=== PATIENT | male | born 1960 | race Caucasian/White ===

== ENCOUNTER 2016-11-12 08:00 | Inpatient (IN) ==
--- NOTE | 2016-11-09 22:46 | Discharge Summary ---
<Tj Pacheco Stephen - Last Filed: 11/12/16 10:00> Date of Encounter: 11/12/16 - Discharge Diagnosis (1) Obesity (BMI 35.0-39.9 without comorbidity) Priority: Secondary Status: Chronic (2) Arthritis of left hip Priority: Primary Status: Chronic (3) Status post total hip replacement, left Priority: Primary Status: Acute (4) Asthma Priority: Secondary Status: Chronic Qualifiers: Asthma severity: unspecified severity Asthma complication type: uncomplicated Qualified Code(s): J45.909 - Unspecified asthma, uncomplicated (5) HTN (hypertension) Priority: Secondary Status: Chronic Qualifiers: Hypertension type: essential hypertension Qualified Code(s): I10 - Essential (primary) hypertension - Discharge Medications Home Medications: Aspirin Enteric Coated [Aspirin EC] 325 mg PO DAILY #21 tablet.dr 11/09/16 [Rx] OxyCODONE Immed Rel [Roxicodone 5 MG] 5 - 10 mg PO Q6HR PRN #40 tablet 11/09/16 [Rx] Albuterol Sulfate [Albuterol Inhaler] 2 puff IH Q4HR PRN 11/12/16 [History] Cholecalciferol (Vitamin D3) [Vitamin D3] 1,000 unit PO DAILY 11/12/16 [History] Cyclobenzaprine HCl 10 mg PO TID 11/12/16 [History] FLUoxetine HCl [Prozac] 40 mg PO DAILY 11/12/16 [History] Lisinopril/Hydrochlorothiazide [Zestoretic 10-12.5 mg Tablet] 1 each PO DAILY [History] Meloxicam [Mobic] 15 mg PO DAILY 11/12/16 [History] Omeprazole [PriLOSEC] 40 mg PO DAILY 11/12/16 [History] Allergies/Adverse Reactions: Allergies No Known Allergies Allergy (Verified 11/12/16 09:06) Primary care physician: Turner Palacios - Patient Status Disposition: Transfer SNF Condition: Good - Discharge Instructions Follow Up With: Turner Palacios MD [Primary Care Provider] - Additional Instructions: POD#2 Left THR - Patient doing well, A&O in bed. Pain controlled. Vitals stable. Patient had fever last night 101 - Treated with Ofirmev 1000mg, then followed with Tylenol PO q hours. Given 500mL NS Bolus. Fever has now subsided and he has remained afebrile. Pulse ox 93% on room air. He does have a history of asthma H/H - 12.38 - asymptomatic Plan: LLE: WBAT, in hip ABD pillow at night x 6 weeks, hip precautions x 6 weeks Encouraging IS. Continuous pulse OX. Will get CXR if fever returns. Opsite dressing, leave intact until first post-operative visit. If dressing becomes >50% saturated, contact office, remove dressing and place appropriate dressing in its place. Do not allow for dressing to get wet. Lita in place, plan to remove at post-operative day #14-16. Total Hip - Joint Precautions x 6 weeks Apply cold therapy wrap 3-6x/day for 20 minutes at a time. Encourage ambulation throughout the day Use Incentive spirometer 10x/hour. Elevate affected extremity above heart as tolerated. Brace: Wear hip abduction brace x 6 weeks D/C to ECF Thursday - Signature* - Hospital Course Hospital course: Mr. Dewey is a 56 year old male - Time Spent with Patient Total time spent providing and/or coordinating discharge services: <Taylor Haque - Last Filed: 11/14/16 10:48> Date of Encounter: 11/15/16 Time of Encounter: 10:38 - Discharge Diagnosis (1) Arthritis of left hip Priority: Primary Status: Chronic (2) Status post total hip replacement, left Priority: Primary Status: Acute (3) Asthma Priority: Secondary Status: Chronic Qualifiers: Asthma severity: unspecified severity Asthma complication type: uncomplicated Qualified Code(s): J45.909 - Unspecified asthma, uncomplicated (4) HTN (hypertension) Priority: Secondary Status: Chronic Qualifiers: Hypertension type: essential hypertension Qualified Code(s): I10 - Essential (primary) hypertension Date of admission: 11/12/16 Discharging clinician: Tj Pacheco Anticipated date of discharge: 11/15/16 - Patient Status Functional capacity at discharge: uses cane/walker Overall status at discharge: patient is back to baseline - Diet and Activity Activity: as per physical therapy Diet: advance to your usual diet - Hospital Course Hospital course: Mr. Dewey is a 56 year old male, status post a Left Total Hip Replacement. He had an uneventful post-operative recovery course. He received antibiotics and physical therapy and were discharged in stable condition. There will follow-up in the office in 2 weeks. - Time Spent with Patient Total time spent providing and/or coordinating discharge services: Less than 30 minutes
[2016-11-12] MEDS ORDERED: Lidocaine -MPF 1% 2 ML VIAL ID ONE (08:17)
[2016-11-12] MEDS ORDERED: CeFAZolin Pre 2,000 MG/100 ML 2,000 MG/100 ML BAG IVPB ONE ×2 (08:17→15:30)
[2016-11-12] MEDS ORDERED: Albuterol 2.5 MG/3 ML NEBULIZER IH ONE ×2 (08:25→11:00)
[2016-11-12] MEDS ORDERED: Albuterol 2.5 MG/3 ML NEBULIZER ONE (08:27)
[2016-11-12] MEDS ORDERED: Ringers Solution, Lactated 1,000 ML IVC SCH ×3 (08:30→15:30)
--- NOTE | 2016-11-12 08:42 | Anesthesia Evaluation PreOp ---
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 11/09/16 [Rx] OxyCODONE Immed Rel [Roxicodone 5 MG] 5 - 10 mg PO Q6HR PRN #40 tablet 11/09/16 [Rx] Allergies No Known Allergies Allergy (Unverified 11/07/16 16:07) - Meds/Allergy Pre-op Review Medications Reviewed: Yes Allergies Reviewed: Yes Beta Blockers on Current Med List: No Anesthesia Results - Labs Laboratory Tests 11/07/16 11/07/16 11/07/16 16:34 16:34 16:34 Hgb 16.1 Hct 49.6 Plt Count 300 PT 10.8 INR 1.0 APTT 26.9 Sodium 137 Potassium 4.3 Creatinine 1.02 - Imaging EKG: report reviewed (nsr) Anesthesia Exam O2 Sat Height 1.68 m Height 1.68 m Weight 105.687 kg Weight 105.687 kg O2 Sat by Pulse Oximetry 94 Vital Signs Temp Pulse Resp BP Pulse Ox 98.9 F 93 18 128/90 94 11/12/16 08:21 11/12/16 08:21 11/12/16 08:21 11/12/16 08:21 11/12/16 08:21 Height: 1.8 Weight: 106 NPO (# of Hours): >8 - HEENT Pupil (Motor): Pupils equal, EOMI Mallampati: II Teeth: Edentulous Oral Opening: Greater than 3 - 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
[2016-11-12] MEDS ORDERED: CloNIDine Patch 0.1 MG PATCH (WEEKLY) TD ONE (08:45)
[2016-11-12] MEDS ORDERED: *HR* Midazolam HCl 2 MG/2 ML VIAL ONE (09:09)
[2016-11-12] MEDS ORDERED: *HR* Propofol 200 MG/20 ML VIAL IVP ONE (09:09)
[2016-11-12] MEDS ORDERED: *HR* Succinylcholine 200 MG/10 ML VIAL IVP ONE (09:09)
[2016-11-12] MEDS ORDERED: Lidocaine -MPF 2% 2 ML VIAL ONE (09:09)
[2016-11-12] MEDS ORDERED: *HR* FentaNYL (PF) 100 MCG/2 ML VIAL ONE ×2 (09:09→11:32)
[2016-11-12] MEDS ORDERED: Lidocaine -MPF 4% 5 ML AMPUL ONE (09:10)
--- NOTE | 2016-11-12 09:48 | History & Physical Report ---
Date of Encounter: 11/12/16 Time of Encounter: 09:47 24 Hour HP Update - Instructions Instructions: If the History and Physical is less than 30 days old and was completed prior to A.M. admission and or procedure and has NOT been updated on calendar day of procedure please complete this update prior to performing procedure. - Update Patient reports changes in Medical Condition: No Changes in examination, assessment, or condition: No Changes in Medication: No Preop tests/diagnostics Reviewed: Yes Surgery Remains Indicated: Yes Consent for Planned Operative Procedure(s) Verified: Yes - Pre-Operative Checklist Preoperative Checklist Indicated: No Prophylactic Antibiotic Ordered: Yes Is VTE Prophylaxis Indicated?: Yes
--- NOTE | 2016-11-12 10:34 | Orthopedic Operative Note ---
Date of procedure: 11/12/16 Pre-op diagnosis: Left knee arthritis Post-op diagnosis: same Procedure: Procedure: Left Total knee replacement Estimated blood loss: 200 cc Hardware: Metal and polyethylene replacement. Arthrex Femur:8 Tibia:7 PS insert:10 Patella:40 Exam Under anesthesia: Full motion no instability Procedural Notes: Grade 4 arthritic changes all 3 compartments Operative procedure: The patient was brought to the operating room and placed on the operating room table. After general anesthesia was administered the operative knee was examined. Findings were noted in the exam under anesthesia. The operative extremity was prepped and draped in sterile surgical fashion. The patient received IV antibiotics prior to skin incision. A standard midline incision was made centered over the patella. The incision was made through the skin and subcutaneous tissue. A medial parapatellar tendon approach was performed. Care was taken to preserve tissue along the medial aspect of the patella. And to protect the patella tendon. The deep MCL was released off the medial tibia. The infra patella fat pad was excised. Knee was brought into flexion. Patient noted to have grade 4 arthritic changes all 3 compartments. The entry hole was made for the intramedullary femoral guide. The guide was seated in 6 degrees of valgus. Anterior cut was made followed by the distal cut. The ACL the PCL the medial and the lateral menisci were excised. The tibia was subluxed forward. The entry hole was made for the intramedullary tibial guide. Guide was seated to resect 2 mm off the more abnormal side. The knee was brought into flexion the distal femur was sized to an 8. The femoral guide was seated, the anterior cut was made followed by the posterior condylar cut, followed by the chamfer cuts. The finishing guide was seated the box cut was made and the lug holes were drilled. The tibia was sized to a 7, the tibial tray was seated and prepared with the large drill followed by the fin cutter. Trial reduction revealed full extension no varus valgus instability with the appropriate 10 PS Sona. The patella was everted and cut was made at the level of the insertion of the quadriceps and patella tendon. The patella was sized to a 40 the guide was seated and the lug holes are drilled. Trial reduction revealed excellent patella tracking. All trial components were removed all bony surfaces were irrigated. The tibia was cemented first followed by the femur. The 10 PS Sona was seated and the knee was brought into full extension. The patella was cemented and held in place with the patellar holding clamp. After the cement had hardened, the knee sat for 2 minutes with a Betadine saline solution. The knee was then irrigated out with 2 L of pulse irrigation. The knee was closed by the PA. The extensor mechanism was closed with #2 FiberWire suture and #2 PDS suture. The subcutaneous tissue was then irrigated and closed deep with #1 PDS suture superficially with 0 PDS suture and skin was closed with skin sabrina. The patient was then placed in a sterile dressing and a postoperative brace extubated and transferred to recovery room in stable condition. Anesthesia: SY Surgeon: Tj Pacheco Condition: stable Disposition: PACU
[2016-11-12] MEDS ORDERED: Ketamine *HR* 500 MG/10 ML MDV ONE (10:55)
[2016-11-12] MEDS ORDERED: Ondansetron 4 MG/2 ML VIAL ONE (10:59)
[2016-11-12] MEDS ORDERED: Dexamethasone 4 MG/ML VIAL ONE (10:59)
[2016-11-12] MEDS ORDERED: *HR* HYDROmorphone (PF) 1 MG/ML SYRINGE IVP PRN ×2 (11:00→15:30)
[2016-11-12] MEDS ORDERED: *HR* Meperidine 25 MG/ML SYRINGE IVP PRN (11:00)
[2016-11-12] MEDS ORDERED: Ondansetron 4 MG/2 ML VIAL IVP ONE (11:00)
[2016-11-12] MEDS ORDERED: *HR* Labetalol 20 MG/4 ML SYRINGE IVP PRN (11:00)
[2016-11-12] MEDS ORDERED: Naloxone 0.4 MG/ML INJ IVP PRN ×2 (11:00→15:30)
[2016-11-12] MEDS ORDERED: EPHEDrine 50 MG/ML VIAL ONE (11:12)
--- NOTE | 2016-11-12 11:53 | Orthopedic Operative Note ---
Date of procedure: 11/12/16 Pre-op diagnosis: Left hip arthritis Post-op diagnosis: same Procedure: Procedure: Left Total Hip Replacment Estimated blood loss: 200 cc Hardware: Metal and polyethylene replacement. Biomet DM Cup: 60 G7 fin cup Femoral size 10 echo full profile lateralized stem Head: +6 head with Sona Procedural Notes: Grade 4 arthritic changes femoral head acetabular socket. Operative procedure: The patient was brought to the operating room and placed on the operating room table. After general anesthesia was administered the patient was placed in the lateral decubitus position with the operative leg up. All pressure points were padded appropriately and the head was stabilized in the neutral position. The operative extremity was prepped and draped in the sterile surgical fashion patient received IV antibiotic prior to skin incision. A standard posterior approach is made to the operative hip, the incision was made through the skin and subcutaneous tissue hemostasis was obtained with Bovie cautery. Using careful sharp dissection the fascia was identified and incised exposing the external rotators. The external rotators were released off the greater trochanter and tagged with #2 FiberWire suture. The capsule was T'd open and the hip was brought into internal rotation. Patient noted to have grade 4 arthritic changes femoral head. The femoral neck cut was made at the appropriate level. An anterior capsulotomy was performed for the anterior retractor. Soft tissues removed from the acetabulum. Patient noted to have grade 4 arthritic changes acetabulum. Acetabulum was first reamed medially, and then reamed in 15 degrees of anteversion and 45 degrees off the horizontal. It was reamed up to the appropriate size 60 The appropriate-sized 60 acetabular cup was impacted in place in 15 degrees of anteversion and 45 degrees off the horizontal. This had good fit and fixation. The hip was brought back in to internal rotation and prepared with the dry box tender followed by the canal finder followed by broaching process in 20 degrees anteversion. It was broached up to the appropriate size 10 The femoral implant was impacted in place in 20 degrees of anteversion. Trial reduction found the hip to be stable with a 6 head and Sona. The trials were removed and the real implants were impacted in place. The hip was reduced, patient had apparent equal leg lengths. The hip had excellent stability with forward flexion to 90 degrees adduction of 30 degrees and internal rotation of 60 degrees. The hip had no shuck. The hips after 2 minutes with a Betadine saline solution. It was irrigated out with 2 L of pulse irrigation. The hip was closed by the PA. Fascia was closed with a running #2 PDS suture. The deep tissue was irrigated and closed deep with #1 PDS suture superficially with 0 PDS suture and skin was closed with Dermabond and skin sabrina. The patient was placed in a sterile dressing and abduction pillow. The patient was extubated and transferred to the recovery room in stable condition. Anesthesia: GETA Surgeon: Tj Pacheco Condition: stable Disposition: PACU
[2016-11-12] MEDS: *HR* HYDROmorphone (PF) 1 MG/ML SYRINGE IVP PRN ×6 (12:45→13:39)
[2016-11-12 13:12] LABS: Hematocrit 44.3 % (37.5-50.1); Hemoglobin 14.1 g/dL (12.9-16.9)
[2016-11-12] MEDS ORDERED: Gabapentin 300 MG CAPSULE PO STA (13:17)
[2016-11-12] MEDS ORDERED: Ketorolac 30 MG/ML VIAL IVP ONE (13:17)
[2016-11-12] MEDS ORDERED: *HR* HYDROmorphone 2 MG/ML SYRINGE ONE (13:20)
[2016-11-12] MEDS ORDERED: *HR* Morphine 10 MG/ML VIAL ONE (13:58)
[2016-11-12] MEDS ORDERED: *HR* Morphine 2 MG/ML SYRINGE IVP PRN (14:01)
--- NOTE | 2016-11-12 14:50 | Anesthesia Evaluation Post Op ---
Date of Encounter: 11/12/16 Time of Encounter: 14:49 - Vital Signs Vital Signs: Vital Signs/O2 Sat/Glucose, Most Current Temp Pulse Resp BP Pulse Ox 11/12/16 14:34 99 16 109/84 97 11/12/16 14:24 102 16 86/63 96 11/12/16 14:14 97.9 F 101 14 96/66 96 11/12/16 14:03 103 18 96/73 98 11/12/16 13:54 101 18 105/85 97 11/12/16 13:44 97.9 F 105 17 109/75 96 11/12/16 13:34 102 21 122/77 96 11/12/16 13:24 105 18 118/77 99 11/12/16 13:13 97.9 F 101 18 109/79 100 11/12/16 13:04 101 20 109/67 99 11/12/16 12:54 100 20 104/67 99 11/12/16 12:44 97.7 F 94 18 101/69 98 11/12/16 12:34 86 18 82/54 99 11/12/16 12:24 85 20 102/72 99 11/12/16 12:14 97.7 F 105 14 110/76 98 - Lungs Lungs: Clear Ascult./Percussion - Airway Airway: Non-obstructed - Cardiovascular Regular Rate - Mental Status Mental Status: Alert & Oriented, Answers Appropriately - Pain Pain Scale: 2 - Nausea Vomiting Nausea Vomiting: Not Present - Hydration Hydration: Tolerates oral liquids - Discharge PostOp Status: Transfer Patient to floor
[2016-11-12] MEDS ORDERED: Ondansetron 4 MG/2 ML VIAL IVP PRN (15:30)
[2016-11-12] MEDS ORDERED: *HR* OxyCODONE Immed Rel 5 MG TABLET PO PRN (15:30)
[2016-11-12] MEDS: Ascorbic Acid 500 MG TABLET PO SCH (16:20)
[2016-11-12] MEDS: *HR* Enoxaparin 30 MG/0.3 ML SYRINGE SQ SCH (16:20)
[2016-11-12] MEDS: ceFAZolin 2,000 MG in D5% in Water 100 ML IVPB SCH ×2 (17:55→22:49)
[2016-11-12] MEDS ORDERED: *HR* Enoxaparin 30 MG/0.3 ML SYRINGE SQ SCH (18:00)
[2016-11-12] MEDS: *HR* OxyCODONE Immed Rel 5 MG TABLET PO PRN (19:29)
[2016-11-12] MEDS ORDERED: MOM Conc 10 ML UD.LIQ PO PRN (21:00)
[2016-11-12] MEDS ORDERED: Sennosides 8.6 MG TABLET PO PRN (21:00)
[2016-11-12] MEDS ORDERED: Temazepam 15 MG CAPSULE PO PRN (21:00)
[2016-11-13] MEDS: *HR* OxyCODONE Immed Rel 5 MG TABLET PO PRN ×5 (03:46→20:51)
[2016-11-13] MEDS: *HR* Enoxaparin 30 MG/0.3 ML SYRINGE SQ SCH ×2 (04:25→16:28)
[2016-11-13 07:05] LABS: Hematocrit 38.9 % (37.5-50.1)
[2016-11-13 07:15] LABS: BUN/Creatinine Ratio 15 (6-26); Blood Urea Nitrogen 15 mg/dL (8-26); Calcium 8.9 mg/dL (8.6-10.8); Carbon Dioxide 23 mEq/L (19-29); Chloride 101 mEq/L (98-109); Glucose 109 mg/dL (70-99); Osmolality,Calculated 279 (280-300); Potassium 4.5 mEq/L (3.5-4.5); Sodium 134 mEq/L (136-145); eGFR For African Americans > 60 (> 60); eGFR For Non-African Americans > 60 (> 60)
[2016-11-13 07:21] LABS: Hemoglobin 12.5 g/dL (12.9-16.9)
[2016-11-13] MEDS: Cholecalciferol (D-3) 1,000 UNIT TABLET PO SCH (07:59)
[2016-11-13] MEDS: Ascorbic Acid 500 MG TABLET PO SCH ×2 (07:59→16:27)
[2016-11-13] MEDS: FLUoxetine 20 MG CAPSULE PO SCH (08:00)
[2016-11-13] MEDS: Multivit/Ca/Min/Fe/FA 1 TAB TABLET PO SCH (08:00)
--- NOTE | 2016-11-13 12:38 | Orthopedics Progress Note ---
Date of Encounter: 11/13/16 Time of Encounter: 08:00 - Assessment and Plan (1) Arthritis of left hip Current Visit: Yes Status: Chronic POD#1 Left THR - Patient doing well, A&O in bed. Pain controlled. Vitals stable. Afebrile. H/H - 12.5/38.9- asymptomatic Plan: LLE: WBAT, in hip ABD pillow at night x 6 weeks, hip precautions x 6 weeks D/C to ECF likely tomorrow - Signature* (2) Status post total hip replacement, left Current Visit: Yes Status: Acute (3) Asthma Current Visit: Yes Status: Chronic Qualifiers: Asthma severity: unspecified severity Asthma complication type: uncomplicated Qualified Code(s): J45.909 - Unspecified asthma, uncomplicated (4) HTN (hypertension) Current Visit: Yes Status: Chronic Qualifiers: Hypertension type: essential hypertension Qualified Code(s): I10 - Essential (primary) hypertension Subjective Principal diagnosis: Left Hip Interval history: POD#1 Left THR - Patient doing well, A&O in bed. Pain controlled. Vitals stable. Afebrile. H/H - 12.5/38.9- asymptomatic LLE: Minimal swelling, no erythema or ecchymosis noted. No calf tenderness or warmth noted. ROM limited. NV intact distally. Plan: LLE: WBAT, in hip ABD pillow at night x 6 weeks, hip precautions x 6 weeks D/C to ECF likely tomorrow - Signature* Objective Vital signs: Vital Signs Temp Pulse Resp BP Pulse Ox 11/13/16 12:05 105 93 11/13/16 10:40 98.8 F 100 18 110/64 95 11/13/16 06:47 99.1 F 105 18 99/65 96 11/13/16 04:57 98.2 F 100 18 105/69 94 11/13/16 01:00 98.8 F 103 17 119/74 96 11/12/16 21:57 98.4 F 96 17 101/64 96 11/12/16 17:30 98.3 F 103 14 118/78 95 11/12/16 16:23 97.4 F L 102 5 108/76 93 11/12/16 15:53 98.6 F 104 16 118/77 94 11/12/16 15:08 98.7 F 107 14 93/57 94 11/12/16 14:52 102 16 95/64 98 11/12/16 14:44 98.9 F 105 16 93/65 97 11/12/16 14:34 99 16 109/84 97 11/12/16 14:24 102 16 86/63 96 11/12/16 14:14 97.9 F 101 14 96/66 96 11/12/16 14:03 103 18 96/73 98 11/12/16 13:54 101 18 105/85 97 11/12/16 13:44 97.9 F 105 17 109/75 96 11/12/16 13:34 102 21 122/77 96 11/12/16 13:24 105 18 118/77 99 11/12/16 13:13 97.9 F 101 18 109/79 100 11/12/16 13:04 101 20 109/67 99 11/12/16 12:54 100 20 104/67 99 11/12/16 12:44 97.7 F 94 18 101/69 98 Intake and Output 11/12/16 11/13/16 11/13/16 23:59 07:59 15:59 Intake Total 740 / 740 1200 / 1200 240 / 240 Output Total 550 / 550 Balance 190 / 190 1200 / 1200 240 / 240 Intake: IV Fluids 100 / 100 Ancef 2,000 MG In 100 / 100 Dextrose 5% 100 ML @ 200 mls/hr IVPB Q8HR [facility] Rx#: [id number] Oral 640 / 640 1200 / 1200 240 / 240 Output: Urine 550 / 550 Other: Meal Dinner Breakfast Percent of Meal Consumed 75% 95% # Voids 2 Incision: clean and dry - Labs CBC & BMP: 11/13/16 06:25 11/13/16 06:25 Labs: Abnormal lab results Hgb 12.5 g/dL (12.9-16.9) L D 11/13/16 06:25 Sodium 134 mEq/L (136-145) L 11/13/16 06:25 Glucose 109 mg/dL (70-99) H 11/13/16 06:25 Calculated Osmolality 279 (280-300) L 11/13/16 06:25 - VTE Documentation of Mechanical Device: Venous foot pump, device Consult Discharge Plan - Plan Referrals: Turner Palacios MD [Primary Care Provider] -
[2016-11-14] MEDS ORDERED: Acetaminophen IV 1,000 MG/100 ML INFUS..BTL IVPB ONE (01:18)
[2016-11-14] MEDS ORDERED: 0.9 % Sodium Chloride 500 ML IVC ONE (01:25)
[2016-11-14 06:37] LABS: Hematocrit 38.3 % (37.5-50.1); Hemoglobin 12.7 g/dL (12.9-16.9)
[2016-11-14 06:52] LABS: BUN/Creatinine Ratio 16 (6-26); Blood Urea Nitrogen 15 mg/dL (8-26); Calcium 8.8 mg/dL (8.6-10.8); Carbon Dioxide 26 mEq/L (19-29); Chloride 105 mEq/L (98-109); Glucose 104 mg/dL (70-99); Osmolality,Calculated 285 (280-300); Potassium 4.4 mEq/L (3.5-4.5); Sodium 137 mEq/L (136-145); eGFR For African Americans > 60 (> 60); eGFR For Non-African Americans > 60 (> 60)
[2016-11-14] MEDS: Ascorbic Acid 500 MG TABLET PO SCH ×2 (07:06→17:13)
[2016-11-14] MEDS: *HR* Enoxaparin 30 MG/0.3 ML SYRINGE SQ SCH ×2 (07:06→17:14)
[2016-11-14] MEDS: Acetaminophen 325 MG TABLET PO SCH ×3 (07:07→17:13)
[2016-11-14] MEDS: Multivit/Ca/Min/Fe/FA 1 TAB TABLET PO SCH (08:09)
[2016-11-14] MEDS: Cholecalciferol (D-3) 1,000 UNIT TABLET PO SCH (08:09)
[2016-11-14] MEDS: FLUoxetine 20 MG CAPSULE PO SCH (08:09)
--- NOTE | 2016-11-14 10:35 | Orthopedics Progress Note ---
Date of Encounter: 11/14/16 Time of Encounter: 08:00 - Assessment and Plan (1) Arthritis of left hip Current Visit: Yes Status: Chronic POD#2 Left THR - Patient doing well, A&O in bed. Pain controlled. Vitals stable. Patient had fever last night 101 - Treated with Ofirmev 1000mg, then followed with Tylenol PO q hours. Given 500mL NS Bolus. Fever has now subsided and he has remained afebrile. Pulse ox 93% on room air. He does have a history of asthma H/H - - asymptomatic Plan: LLE: WBAT, in hip ABD pillow at night x 6 weeks, hip precautions x 6 weeks Encouraging IS. Continuous pulse OX. Will get CXR if fever returns. D/C to ECF Thursday - Signature* (2) Status post total hip replacement, left Current Visit: Yes Status: Acute (3) Asthma Current Visit: Yes Status: Chronic Qualifiers: Asthma severity: unspecified severity Asthma complication type: uncomplicated Qualified Code(s): J45.909 - Unspecified asthma, uncomplicated (4) HTN (hypertension) Current Visit: Yes Status: Chronic Qualifiers: Hypertension type: essential hypertension Qualified Code(s): I10 - Essential (primary) hypertension Subjective Principal diagnosis: Left Hip Interval history: POD#2 Left THR - Patient doing well, A&O in bed. Pain controlled. Vitals stable. Patient had fever last night 101 - Treated with Ofirmev 1000mg, then followed with Tylenol PO q hours. Given 500mL NS Bolus. Fever has now subsided and he has remained afebrile. Pulse ox 93% on room air. He does have a history of asthma H/H - - asymptomatic LLE: Minimal swelling, no erythema or ecchymosis noted. No calf tenderness or warmth noted. ROM limited. NV intact distally. Plan: LLE: WBAT, in hip ABD pillow at night x 6 weeks, hip precautions x 6 weeks Encouraging IS. Continuous pulse OX. Will get CXR if fever returns. D/C to ECF Thursday - Signature* Objective Vital signs: Vital Signs Temp Pulse Resp BP Pulse Ox 11/14/16 08:10 98.9 F 94 12 113/72 93 11/14/16 07:49 99.3 F 93 14 110/74 91 08/10/17 23:09 99.5 F 108 20 130/72 93 11/13/16 18:34 99.0 F 114 18 125/76 93 11/13/16 16:54 98.9 F 105 17 119/78 94 11/13/16 12:54 105 93 11/13/16 12:05 105 93 11/13/16 10:40 98.8 F 100 18 110/64 95 Intake and Output 11/13/16 11/14/16 11/14/16 23:59 07:59 15:59 Intake Total 960 / 960 600 / 600 Balance 960 / 960 600 / 600 Intake: IV Fluids 960 / 960 600 / 600 0.9 % Sodium Chloride 500 500 / 500 ML @ 1875 mls/hr IVC . Q16M ONE Rx#:[id number] Lactated Ringers 1,000 ML 860 / 860 @ 75 mls/hr IVC .[id number] [facility] Rx#:[id number] Ofirmev 1,000 mg/100 ml 1 100 / 100 ,000 mg In 100 ml @ 400 mls/hr IVPB ONCE ONE Rx#: [id number] Other: # Voids 1 Incision: clean and dry - Labs CBC & BMP: 11/14/16 06:27 11/14/16 06:27 Labs: Abnormal lab results Hgb 12.7 g/dL (12.9-16.9) L 11/14/16 06:27 Glucose 104 mg/dL (70-99) H 11/14/16 06:27 - VTE Documentation of Mechanical Device: Venous foot pump, device Consult Discharge Plan - Plan Additional Instructions: POD#2 Left THR - Patient doing well, A&O in bed. Pain controlled. Vitals stable. Patient had fever last night 101 - Treated with Ofirmev 1000mg, then followed with Tylenol PO q hours. Given 500mL NS Bolus. Fever has now subsided and he has remained afebrile. Pulse ox 93% on room air. He does have a history of asthma H/H - 12.7/38 - asymptomatic Plan: LLE: WBAT, in hip ABD pillow at night x 6 weeks, hip precautions x 6 weeks Encouraging IS. Continuous pulse OX. Will get CXR if fever returns. Opsite dressing, leave intact until first post-operative visit. If dressing becomes >50% saturated, contact office, remove dressing and place appropriate dressing in its place. Do not allow for dressing to get wet. Lita in place, plan to remove at post-operative day #14-16. Total Hip - Joint Precautions x 6 weeks Apply cold therapy wrap 3-6x/day for 20 minutes at a time. Encourage ambulation throughout the day Use Incentive spirometer 10x/hour. Elevate affected extremity above heart as tolerated. Brace: Wear hip abduction brace x 6 weeks D/C to F Thursday - Signature* Referrals: Turner Palacios MD [Primary Care Provider] -
--- NOTE | 2016-11-14 10:51 | Physician Discharge Referral ---
ExtendedCare Referral Info Transfer To: [facility] Provider in Charge: Provider in Charge after Transfer: PCP Institutional Level of Care: Skilled - Diagnosis (1) Arthritis of left hip Priority: Primary Status: Chronic (2) Status post total hip replacement, left Priority: Primary Status: Acute (3) Asthma Priority: Secondary Status: Chronic (4) HTN (hypertension) Priority: Secondary Status: Chronic (5) Obesity (BMI 35.0-39.9 without comorbidity) Priority: Secondary Status: Chronic Expected Duration of Placement: < 30 days Prognosis: Good Aware of Diagnosis: Patient Aware of Prognosis: Patient - Transfer Medications Home Medications: Aspirin Enteric Coated [Aspirin EC] 325 mg PO DAILY #21 tablet. 11/09/16 [Rx] OxyCODONE Immed Rel [Roxicodone 5 MG] 5 - 10 mg PO Q6HR PRN #40 tablet 11/09/16 [Rx] Albuterol Sulfate [Albuterol Inhaler] 2 puff IH Q4HR PRN 11/12/16 [History] Cholecalciferol (Vitamin D3) [Vitamin D3] 1,000 unit PO DAILY 11/12/16 [History] Cyclobenzaprine HCl 10 mg PO TID 11/12/16 [History] FLUoxetine HCl [Prozac] 40 mg PO DAILY 11/12/16 [History] Lisinopril/Hydrochlorothiazide [Zestoretic 10-12.5 mg Tablet] 1 each PO DAILY [History] Meloxicam [Mobic] 15 mg PO DAILY 11/12/16 [History] Omeprazole [PriLOSEC] 40 mg PO DAILY 11/12/16 [History] Allergies/Adverse Reactions: Allergies No Known Allergies Allergy (Verified 11/12/16 09:06) - Respiratory Orders None Smoking Cessation: Smoking cessation has been advised. For more information, call the [place] Tobacco Quit Line at 0-945-LECX-NOW. - Ancillary Orders May use pressure relief devices daily prn, May go on DORIAN w/family/respon alliance party w /meds at nurse discretion PRN, May consult with Dentist, Deicer Repairer Pneumatic, Director Of Analytical Development PRN - Mobility Orders Chair, Ambulate - Rehabiliation Orders Rehab Potential: Good Rehab Orders: ROM Exercises, Evaluation for Physical Therapy, Evaluation for Occupational Therapy - Treatments Skin tear care topically daily PRN per policy List/Other: Opsite dressing, leave intact until first post-operative visit. If dressing becomes >50% saturated, contact office, remove dressing and place appropriate dressing in its place. Do not allow for dressing to get wet. Lita in place, plan to remove at post-operative day #14-16. Total Joint - HIP Precautions x 6 weeks Apply cold therapy wrap 3-6x/day for 20 minutes at a time. Encourage ambulation throughout the day Use Incentive spirometer 10x/hour. Elevate affected extremity above heart as tolerated. Brace: Wear hip abduction brace night x 6 weeks. - Diet Orders Regular CERTIFICATION: I certify that the transfer of the above named patient to an Extended Care Facility is necessary for the continuing treatment of the diagnosis listed. The above information is true and accurate reflection of patient's current condition. Confidential - Redisclosure prohibited without a patient's written consent.
[2016-11-14] MEDS: *HR* OxyCODONE Immed Rel 5 MG TABLET PO PRN ×2 (14:56→19:23)
[2016-11-15] MEDS: Acetaminophen 325 MG TABLET PO SCH ×2 (00:02→05:54)
[2016-11-15] MEDS: *HR* Enoxaparin 30 MG/0.3 ML SYRINGE SQ SCH (05:54)
[2016-11-15 08:24] VITALS: BP 112/69
[2016-11-15] MEDS: FLUoxetine 20 MG CAPSULE PO SCH (08:49)
[2016-11-15] MEDS: *HR* OxyCODONE Immed Rel 5 MG TABLET PO PRN (08:50)
[2016-11-15] MEDS: Cholecalciferol (D-3) 1,000 UNIT TABLET PO SCH (08:50)
[2016-11-15] MEDS: Ascorbic Acid 500 MG TABLET PO SCH (08:50)
[2016-11-15] MEDS: Multivit/Ca/Min/Fe/FA 1 TAB TABLET PO SCH (08:50)
== END 2016-11-15 11:56 | DRG 470 ==
LOC: SAMDAY 08:00 → 3NENU 15:14
PROVIDERS: ADMIT Orthopaedic Surgery; ATTEND Orthopaedic Surgery

== ENCOUNTER 2019-02-23 00:16 | Inpatient (IN) ==
[~2019-02-23 00:16] MED LIST: 0.9 % Sodium Chloride 1,000 ML IVC ONE; Aspirin 81 MG TAB.CHEW PO ONE
[2019-02-23] MEDS ORDERED: *HR* Ticagrelor 90 MG TABLET PO ONE (00:21)
[2019-02-23] MEDS ORDERED: Verapamil 5 MG/2 ML VIAL ONE (00:22)
[2019-02-23] MEDS ORDERED: *HR* FentaNYL (PF) 100 MCG/2 ML VIAL ONE (00:22)
[2019-02-23] MEDS ORDERED: *HR* Midazolam HCl 2 MG/2 ML VIAL ONE (00:22)
[2019-02-23] MEDS ORDERED: ISOVUE-370 200 ML INFUS..BTL ONE (00:23)
[2019-02-23] MEDS ORDERED: Nitroglycerin 1,000 MCG/10 ML VIAL IV ONE (00:23)
[2019-02-23] MEDS ORDERED: *HR* Heparin 5,000 UNIT/ML VIAL IVP ONE ×2 (00:23→00:26)
[2019-02-23] MEDS ORDERED: Heparin 1,000 UNITS/500 mL 500 ML ONE (00:23)
[2019-02-23] MEDS ORDERED: 0.9 % Sodium Chloride 2,000 ML ONE (00:23)
[2019-02-23] MEDS ORDERED: *HR* Heparin 10,000 UNIT/10 ML VIAL ONE (00:23)
[2019-02-23] MEDS ORDERED: *HR* Heparin 5,000 UNIT/ML VIAL IVP PRN ×4 (00:23→00:26)
[2019-02-23] MEDS ORDERED: Heparin 25,000 UNIT/250 ML D5W 25,000 UNIT/250 ML IV.SOLN IVC SCH ×2 (00:30)
[2019-02-23] MEDS ORDERED: *HR* FentaNYL (PF) 100 MCG/2 ML VIAL IVP ONE (00:37)
[2019-02-23 00:38] LABS: Basophils # 0.1 K/mcL (0.0-0.2); Basophils % 0.9 %; Eosinophils # 0.2 K/mcL (0.0-0.6); Eosinophils % 1.5 %; Hematocrit 47.3 % (37.5-50.1); Hemoglobin 17.2 g/dL (12.9-16.9); Immature Granulocytes % 0.4 % (0-4); Lymphocytes # 2.4 K/mcL (0.6-4.6); Lymphocytes % 24.7 %; Mean Corpuscular HGB Conc 36.4 g/dL (31.6-35.5); Mean Corpuscular Hemoglobin 31.9 pg (28.0-33.3); Mean Corpuscular Volume 87.8 fL (83.0-100.0); Mean Platelet Volume 8.4 fL (9.4-12.4); Monocytes # 0.9 K/mcL (0.0-1.3); Monocytes % 9.2 %; Neutrophils # 6.2 K/mcL (1.6-8.9); Platelet Count 261 K/mcL (140-400); Red Blood Count 5.39 M/mcL (4.19-5.50); Segmented Neutrophils % 63.3 %; White Blood Count 9.7 K/mcL (4.3-11.1)
[2019-02-23 00:39] LABS: Prothrombin Time 11.5 Seconds (9.4-12.1)
[2019-02-23] MEDS ORDERED: Tirofiban 12.5 MG/250ML 12.5 MG/250 ML BAG ONE (00:43)
[2019-02-23 01:00] LABS: BUN/Creatinine Ratio 22 (6-26); Blood Urea Nitrogen 25 mg/dL (6-20); Calcium 10.3 mg/dL (8.6-10.3); Carbon Dioxide 21 mEq/L (23-29); Chloride 100 mEq/L (98-107); Glucose 132 mg/dL (70-105); Osmolality,Calculated 286 (280-300); Potassium 3.9 mEq/L (3.5-5.1); Sodium 135 mEq/L (136-145); Troponin I 1.11 ng/mL (< 0.04); eGFR For African Americans > 60 (> 60); eGFR For Non-African Americans > 60 (> 60)
[2019-02-23] MEDS ORDERED: *HR* Atropine Sulfate 1 MG/10 ML SYRINGE ONE (01:18)
[2019-02-23] MEDS ORDERED: Tirofiban 12.5 MG/250ML 12.5 MG/250 ML BAG IVC SCH (03:00)
[2019-02-23] MEDS ORDERED: Acetaminophen 325 MG TABLET PO PRN (03:00)
[2019-02-23] MEDS ORDERED: *HR* HYDROcodone/Acet 5/325 mg TABLET PO PRN (03:00)
[2019-02-23] MEDS ORDERED: Ondansetron 4 MG/2 ML VIAL IVP PRN (03:06)
[2019-02-23] MEDS ORDERED: *HR* Labetalol 20 MG/4 ML SYRINGE IVP PRN (03:21)
[2019-02-23] MEDS: 0.9 % Sodium Chloride 1,000 ML IVC SCH ×2 (04:26→17:24)
[2019-02-23 04:50] LABS: Hematocrit 45.4 % (37.5-50.1); Hemoglobin 16.1 g/dL (12.9-16.9); Mean Corpuscular HGB Conc 35.5 g/dL (31.6-35.5); Mean Corpuscular Hemoglobin 31.3 pg (28.0-33.3); Mean Corpuscular Volume 88.3 fL (83.0-100.0); Mean Platelet Volume 8.5 fL (9.4-12.4); Platelet Count 215 K/mcL (140-400); Red Blood Count 5.14 M/mcL (4.19-5.50); Red Cell Distribution Width 12.8 % (11.5-14.5); White Blood Count 10.1 K/mcL (4.3-11.1)
[2019-02-23 04:51] LABS: Basophils # 0.1 K/mcL (0.0-0.2); Basophils % 0.5 %; Eosinophils % 0.4 %; Hematocrit 46.1 % (37.5-50.1); Hemoglobin 15.7 g/dL (12.9-16.9); Immature Granulocytes % 0.3 % (0-4); Lymphocytes # 1.2 K/mcL (0.6-4.6); Lymphocytes % 11.7 %; Mean Corpuscular HGB Conc 34.1 g/dL (31.6-35.5); Mean Corpuscular Volume 91.1 fL (83.0-100.0); Mean Platelet Volume 8.5 fL (9.4-12.4); Monocytes # 0.6 K/mcL (0.0-1.3); Monocytes % 6.2 %; Neutrophils # 8.3 K/mcL (1.6-8.9); Platelet Count 211 K/mcL (140-400); Red Blood Count 5.06 M/mcL (4.19-5.50); Red Cell Distribution Width 12.9 % (11.5-14.5); Segmented Neutrophils % 80.9 %; White Blood Count 10.3 K/mcL (4.3-11.1)
[2019-02-23 05:11] LABS: BUN/Creatinine Ratio 24 (6-26); Blood Urea Nitrogen 22 mg/dL (6-20); Calcium 9.2 mg/dL (8.6-10.3); Carbon Dioxide 19 mEq/L (23-29); Chloride 106 mEq/L (98-107); Glucose 184 mg/dL (70-105); Osmolality,Calculated 290 (280-300); Potassium 3.8 mEq/L (3.5-5.1); Sodium 136 mEq/L (136-145); eGFR For African Americans > 60 (> 60); eGFR For Non-African Americans > 60 (> 60)
[2019-02-23] MEDS: *HR* Ticagrelor 90 MG TABLET PO SCH ×2 (08:36→19:55)
[2019-02-23] MEDS: Aspirin 81 MG TAB.CHEW PO SCH (08:36)
[2019-02-23] MEDS ORDERED: Dextrose Gel 15 GM/37.5 ML TUBE PO PRN ×2 (10:54)
[2019-02-23] MEDS ORDERED: D5% in Water 1,000 ML IVC PRN (10:54)
[2019-02-23] MEDS ORDERED: *HR* Dextrose 50 % in Water (Syg) 50 ML SYRINGE IVP PRN (10:54)
[2019-02-23] MEDS ORDERED: Amiodarone Premix 360 MG/200 ML BAG IVC ONE (12:52)
[2019-02-23] MEDS ORDERED: Amiodarone Premix 150 MG/100 ML BAG IVPB ONE (12:52)
[2019-02-23] MEDS: Insulin LISPRO 300 UNITS/3 ML VIAL SQ SCH ×2 (13:14→17:36)
[2019-02-23] MEDS: Nitroglycerin 25 MG/250 ML INFUS..BTL IVC SCH (17:10)
[2019-02-23] MEDS: Amiodarone Premix 360 MG/200 ML BAG IVC SCH (19:47)
[2019-02-23] MEDS ORDERED: Perflutren Lipid Microsphere 1.3 ML in 0.9 % Sodium Chloride 8.7 ML IVP ONE (20:46)
[2019-02-23] MEDS ORDERED: Perflutren Lipid Microsphere 2 ML VIAL ONE (20:48)
[2019-02-24] MEDS: 0.9 % Sodium Chloride 1,000 ML IVC SCH (06:58)
[2019-02-24] MEDS: Amiodarone Premix 360 MG/200 ML BAG IVC SCH (07:40)
[2019-02-24] MEDS: Aspirin 81 MG TAB.CHEW PO SCH (08:44)
[2019-02-24] MEDS: Insulin LISPRO 300 UNITS/3 ML VIAL SQ SCH ×3 (08:55→16:19)
[2019-02-24] MEDS: *HR* Ticagrelor 90 MG TABLET PO SCH ×2 (10:09→20:38)
[2019-02-24 10:19] LABS: Basophils % 0.5 %; Eosinophils # 0.1 K/mcL (0.0-0.6); Eosinophils % 1.3 %; Hematocrit 44.4 % (37.5-50.1); Hemoglobin 15.3 g/dL (12.9-16.9); Immature Granulocytes % 0.6 % (0-4); Lymphocytes # 2.1 K/mcL (0.6-4.6); Lymphocytes % 26.1 %; Mean Corpuscular HGB Conc 34.5 g/dL (31.6-35.5); Mean Corpuscular Volume 89.9 fL (83.0-100.0); Mean Platelet Volume 8.4 fL (9.4-12.4); Monocytes # 0.8 K/mcL (0.0-1.3); Monocytes % 10.3 %; Neutrophils # 4.9 K/mcL (1.6-8.9); Platelet Count 185 K/mcL (140-400); Red Blood Count 4.94 M/mcL (4.19-5.50); Red Cell Distribution Width 13.3 % (11.5-14.5); Segmented Neutrophils % 61.2 %; White Blood Count 7.9 K/mcL (4.3-11.1)
[2019-02-24 10:37] LABS: BUN/Creatinine Ratio 14 (6-26); Blood Urea Nitrogen 13 mg/dL (6-20); Calcium 9.1 mg/dL (8.6-10.3); Carbon Dioxide 22 mEq/L (23-29); Chloride 108 mEq/L (98-107); Glucose 117 mg/dL (70-105); Osmolality,Calculated 285 (280-300); Potassium 4.4 mEq/L (3.5-5.1); Sodium 137 mEq/L (136-145); eGFR For African Americans > 60 (> 60); eGFR For Non-African Americans > 60 (> 60)
[2019-02-24 11:17] LABS: Estimated Average Glucose 126 mg/dl
[2019-02-24] MEDS: Nitroglycerin 25 MG/250 ML INFUS..BTL IVC SCH ×2 (12:51→16:19)
[2019-02-24] MEDS ORDERED: *HR* Labetalol 20 MG/4 ML SYRINGE IVP PRN (16:02)
[2019-02-24] MEDS ORDERED: Ondansetron 4 MG/2 ML VIAL IVP PRN (16:02)
[2019-02-24] MEDS ORDERED: Dextrose Gel 15 GM/37.5 ML TUBE PO PRN ×2 (16:02)
[2019-02-24] MEDS ORDERED: D5% in Water 1,000 ML IVC PRN (16:02)
[2019-02-24] MEDS ORDERED: *HR* Dextrose 50 % in Water (Syg) 50 ML SYRINGE IVP PRN (16:02)
[2019-02-24] MEDS ORDERED: Acetaminophen 325 MG TABLET PO PRN (16:02)
[2019-02-24] MEDS: Gabapentin 300 MG CAPSULE PO SCH ×2 (16:24→20:38)
[2019-02-24] MEDS: *HR* Heparin 5,000 UNIT/ML VIAL SQ SCH (17:08)
[2019-02-24] MEDS ORDERED: *HR* Heparin 5,000 UNIT/ML VIAL SQ SCH (18:00)
[2019-02-24] MEDS: *HR* Amiodarone 200 MG TABLET PO SCH (20:38)
[2019-02-24] MEDS ORDERED: *HR* Amiodarone 200 MG TABLET PO SCH (21:00)
[2019-02-25] MEDS: *HR* Heparin 5,000 UNIT/ML VIAL SQ SCH ×2 (06:14→16:43)
[2019-02-25 07:18] LABS: Thyroid Stimulating Hormone 1.413 mcIU/mL (0.340-5.600)
[2019-02-25] MEDS: FLUoxetine 20 MG CAPSULE PO SCH (07:55)
[2019-02-25] MEDS: *HR* Ticagrelor 90 MG TABLET PO SCH ×2 (07:55→20:31)
[2019-02-25] MEDS: Insulin LISPRO 300 UNITS/3 ML VIAL SQ SCH ×3 (07:55→16:43)
[2019-02-25] MEDS: *HR* Amiodarone 200 MG TABLET PO SCH (07:55)
[2019-02-25] MEDS: *HR* HYDROcodone/Acet 5/325 mg TABLET PO PRN ×2 (07:55→21:49)
[2019-02-25] MEDS: Cholecalciferol (D-3) 1,000 UNIT (25MCG) TABLET PO SCH (07:55)
[2019-02-25] MEDS: Gabapentin 300 MG CAPSULE PO SCH ×3 (07:56→20:31)
[2019-02-25] MEDS: Cyanocobalamin (B-12) 1,000 MCG TABLET PO SCH (07:56)
[2019-02-25] MEDS: Aspirin 81 MG TAB.CHEW PO SCH (07:56)
[2019-02-25] MEDS: *HR* Metformin 500 MG TABLET PO SCH ×2 (10:03→16:43)
[2019-02-25] MEDS: Nitroglycerin 25 MG/250 ML INFUS..BTL IVC SCH (21:46)
[2019-02-26 05:12] LABS: Basophils # 0.1 K/mcL (0.0-0.2); Basophils % 0.9 %; Eosinophils # 0.2 K/mcL (0.0-0.6); Eosinophils % 2.4 %; Hematocrit 44.6 % (37.5-50.1); Hemoglobin 15.4 g/dL (12.9-16.9); Immature Granulocytes % 0.3 % (0-4); Lymphocytes # 2.3 K/mcL (0.6-4.6); Lymphocytes % 26.1 %; Mean Corpuscular HGB Conc 34.5 g/dL (31.6-35.5); Mean Corpuscular Hemoglobin 31.2 pg (28.0-33.3); Mean Corpuscular Volume 90.5 fL (83.0-100.0); Mean Platelet Volume 8.6 fL (9.4-12.4); Monocytes # 0.8 K/mcL (0.0-1.3); Neutrophils # 5.4 K/mcL (1.6-8.9); Platelet Count 211 K/mcL (140-400); Red Blood Count 4.93 M/mcL (4.19-5.50); Red Cell Distribution Width 12.7 % (11.5-14.5); Segmented Neutrophils % 61.3 %; White Blood Count 8.8 K/mcL (4.3-11.1)
[2019-02-26 05:27] LABS: BUN/Creatinine Ratio 17 (6-26); Blood Urea Nitrogen 15 mg/dL (6-20); Calcium 9.2 mg/dL (8.6-10.3); Carbon Dioxide 26 mEq/L (23-29); Chloride 106 mEq/L (98-107); Glucose 101 mg/dL (70-105); Osmolality,Calculated 287 (280-300); Potassium 4.2 mEq/L (3.5-5.1); Sodium 138 mEq/L (136-145); eGFR For African Americans > 60 (> 60); eGFR For Non-African Americans > 60 (> 60)
[2019-02-26] MEDS: *HR* Heparin 5,000 UNIT/ML VIAL SQ SCH (06:51)
[2019-02-26] MEDS: *HR* HYDROcodone/Acet 5/325 mg TABLET PO PRN (07:18)
[2019-02-26] MEDS ORDERED: *HR* Amiodarone 200 MG TABLET PO SCH (09:00)
[2019-02-26] MEDS ORDERED: Isosorbide MONOnitrate (24 HR) 30 MG TAB.ER.24H PO SCH (09:30)
[2019-02-26] MEDS: Cyanocobalamin (B-12) 1,000 MCG TABLET PO SCH (09:46)
[2019-02-26] MEDS: *HR* Ticagrelor 90 MG TABLET PO SCH (09:46)
[2019-02-26] MEDS: FLUoxetine 20 MG CAPSULE PO SCH (09:46)
[2019-02-26] MEDS: *HR* Metformin 500 MG TABLET PO SCH (09:46)
[2019-02-26] MEDS: Aspirin 81 MG TAB.CHEW PO SCH (09:47)
[2019-02-26] MEDS: Gabapentin 300 MG CAPSULE PO SCH (09:47)
[2019-02-26] MEDS: Cholecalciferol (D-3) 1,000 UNIT (25MCG) TABLET PO SCH (09:47)
[2019-02-26] MEDS: Insulin LISPRO 300 UNITS/3 ML VIAL SQ SCH ×2 (09:49→11:46)
[2019-02-26 13:56] VITALS: BP 96/59
[2019-02-26] MEDS ORDERED: FLU Vac QV 19-20 (6Month+)/PF 0.5 ML SYRINGE IM ONE (14:59)
== END 2019-02-26 16:14 | disposition home or self-care (01) | DRG 247 ==
LOC: EMEROOARM 00:16 → ICNU 00:51 → EMEROOARM 00:51 → ICNU 01:11
PROVIDERS: ADMIT Internal Medicine Interventional Cardiology; ATTEND Internal Medicine Interventional Cardiology

== ENCOUNTER 2019-04-25 18:44 | Inpatient (IN) ==
[2019-04-25 19:29] LABS: Basophils # 0.1 K/mcL (0.0-0.2); Basophils % 0.9 %; Eosinophils # 0.2 K/mcL (0.0-0.6); Eosinophils % 1.4 %; Hematocrit 44.5 % (37.5-50.1); Hemoglobin 15.3 g/dL (12.9-16.9); Immature Granulocytes % 0.9 % (0-4); Lymphocytes # 2.5 K/mcL (0.6-4.6); Lymphocytes % 21.7 %; Mean Corpuscular HGB Conc 34.4 g/dL (31.6-35.5); Mean Corpuscular Hemoglobin 30.8 pg (28.0-33.3); Mean Corpuscular Volume 89.7 fL (83.0-100.0); Mean Platelet Volume 8.1 fL (9.4-12.4); Monocytes # 1.1 K/mcL (0.0-1.3); Monocytes % 9.3 %; Neutrophils # 7.6 K/mcL (1.6-8.9); Platelet Count 237 K/mcL (140-400); Red Blood Count 4.96 M/mcL (4.19-5.50); Red Cell Distribution Width 13.3 % (11.5-14.5); Segmented Neutrophils % 65.8 %; White Blood Count 11.6 K/mcL (4.3-11.1)
[2019-04-25 19:44] LABS: Bilirubin,Urine Small (Negative); Blood,Urine Negative (Negative); Clarity,Urine Cloudy (Clear); Color,Urine Yellow (Yellow); Glucose,Urine (UA) Normal (Normal); Ketones,Urine Negative (Negative); Leukocyte Esterase,Urine Trace (Negative); Nitrite,Urine Negative (Negative); PH,Urine 5.5 pH Units (5.0-8.0); Protein,Urine Trace mg/dL (Neg-Trace); Specific Gravity,Urine 1.024 (1.010-1.025); Urobilinogen,Urine Normal (Normal)
[2019-04-25 19:45] LABS: Bacteria,Urine None Seen per hpf (None-Few); Squamous Epithelial Cell,Urine Many per lpf (None-Few)
[2019-04-25 19:54] LABS: BUN/Creatinine Ratio 12 (6-26); Blood Urea Nitrogen 15 mg/dL (6-20); Calcium 9.2 mg/dL (8.6-10.3); Carbon Dioxide 23 mEq/L (23-29); Chloride 104 mEq/L (98-107); Glucose 118 mg/dL (70-105); Osmolality,Calculated 288 (280-300); Potassium 4.3 mEq/L (3.5-5.1); Sodium 138 mEq/L (136-145); Troponin I 0.03 ng/mL (< 0.04); eGFR For African Americans > 60 (> 60); eGFR For Non-African Americans > 60 (> 60)
[2019-04-25 20:09] LABS: Hyaline Casts,Urine Moderate per lpf (None-Few)
[2019-04-25] MEDS ORDERED: 0.9 % Sodium Chloride 500 ML IVC ONE (20:49)
[2019-04-25] MEDS ORDERED: Isovue-370 500 ML BOTTLE IVP ONE (21:33)
[2019-04-25] MEDS ORDERED: Naloxone 0.4 MG/ML INJ IVP PRN (23:40)
[2019-04-25] MEDS ORDERED: Ondansetron 4 MG/2 ML VIAL IVP PRN (23:40)
[2019-04-25] MEDS ORDERED: 0.9 % Sodium Chloride 1,000 ML IVC SCH (23:45)
[2019-04-26] MEDS ORDERED: Nitroglycerin 0.4 MG TAB.SUBL SL PRN (00:58)
[2019-04-26] MEDS ORDERED: Acetaminophen 325 MG TABLET PO PRN (00:58)
[2019-04-26] MEDS ORDERED: *HR* Dextrose 50 % in Water (Syg) 50 ML SYRINGE IVP PRN (01:06)
[2019-04-26] MEDS ORDERED: Dextrose Gel 15 GM/37.5 ML TUBE PO PRN ×2 (01:06)
[2019-04-26] MEDS ORDERED: D5% in Water 1,000 ML IVC PRN (01:06)
[2019-04-26 06:30] LABS: Basophils # 0.1 K/mcL (0.0-0.2); Eosinophils # 0.2 K/mcL (0.0-0.6); Eosinophils % 1.9 %; Hematocrit 42.8 % (37.5-50.1); Hemoglobin 14.4 g/dL (12.9-16.9); Lymphocytes # 2.9 K/mcL (0.6-4.6); Lymphocytes % 31.6 %; Mean Corpuscular HGB Conc 33.6 g/dL (31.6-35.5); Mean Corpuscular Hemoglobin 30.4 pg (28.0-33.3); Mean Corpuscular Volume 90.5 fL (83.0-100.0); Mean Platelet Volume 8.2 fL (9.4-12.4); Monocytes % 10.6 %; Neutrophils # 4.9 K/mcL (1.6-8.9); Platelet Count 225 K/mcL (140-400); Red Blood Count 4.73 M/mcL (4.19-5.50); Red Cell Distribution Width 13.5 % (11.5-14.5); Segmented Neutrophils % 53.9 %
[2019-04-26 06:53] LABS: BUN/Creatinine Ratio 11 (6-26); Blood Urea Nitrogen 13 mg/dL (6-20); Calcium 8.6 mg/dL (8.6-10.3); Carbon Dioxide 25 mEq/L (23-29); Chloride 106 mEq/L (98-107); Glucose 100 mg/dL (70-105); Magnesium 2.1 mg/dL (1.6-2.6); Osmolality,Calculated 290 (280-300); Potassium 4.3 mEq/L (3.5-5.1); Sodium 140 mEq/L (136-145); eGFR For African Americans > 60 (> 60); eGFR For Non-African Americans > 60 (> 60)
[2019-04-26] MEDS: FLUoxetine 20 MG CAPSULE PO SCH (10:31)
[2019-04-26] MEDS: Gabapentin 300 MG CAPSULE PO SCH ×3 (10:31→21:27)
[2019-04-26] MEDS: Cholecalciferol (D-3) 1,000 UNIT (25MCG) TABLET PO SCH (10:31)
[2019-04-26] MEDS: *HR* Ticagrelor 90 MG TABLET PO SCH ×2 (10:31→21:27)
[2019-04-26] MEDS: *HR* Amiodarone 200 MG TABLET PO SCH (10:31)
[2019-04-26] MEDS: Aspirin 81 MG TAB.CHEW PO SCH (10:31)
[2019-04-26] MEDS: Insulin LISPRO 300 UNITS/3 ML VIAL SQ SCH ×3 (10:32→18:19)
[2019-04-26] MEDS: carvediloL 6.25 MG TABLET PO SCH (18:25)
[2019-04-26] MEDS ORDERED: Insulin LISPRO 300 UNITS/3 ML VIAL SQ SCH (21:00)
[2019-04-27 05:29] LABS: Hematocrit 45.1 % (37.5-50.1); Hemoglobin 15.7 g/dL (12.9-16.9); Mean Corpuscular HGB Conc 34.8 g/dL (31.6-35.5); Mean Corpuscular Hemoglobin 30.5 pg (28.0-33.3); Mean Corpuscular Volume 87.6 fL (83.0-100.0); Mean Platelet Volume 8.4 fL (9.4-12.4); Platelet Count 223 K/mcL (140-400); Red Blood Count 5.15 M/mcL (4.19-5.50); Red Cell Distribution Width 13.1 % (11.5-14.5); White Blood Count 10.7 K/mcL (4.3-11.1)
[2019-04-27 05:49] LABS: BUN/Creatinine Ratio 10 (6-26); Blood Urea Nitrogen 10 mg/dL (6-20); Calcium 9.3 mg/dL (8.6-10.3); Carbon Dioxide 24 mEq/L (23-29); Chloride 107 mEq/L (98-107); Glucose 100 mg/dL (70-105); Osmolality,Calculated 285 (280-300); Potassium 4.3 mEq/L (3.5-5.1); Sodium 138 mEq/L (136-145); eGFR For African Americans > 60 (> 60); eGFR For Non-African Americans > 60 (> 60)
[2019-04-27 07:43] VITALS: BP 139/85
[2019-04-27] MEDS: Cholecalciferol (D-3) 1,000 UNIT (25MCG) TABLET PO SCH (08:53)
[2019-04-27] MEDS: Aspirin 81 MG TAB.CHEW PO SCH (08:53)
[2019-04-27] MEDS: *HR* Ticagrelor 90 MG TABLET PO SCH (08:53)
[2019-04-27] MEDS: Gabapentin 300 MG CAPSULE PO SCH (08:54)
[2019-04-27] MEDS: *HR* Amiodarone 200 MG TABLET PO SCH (08:54)
[2019-04-27] MEDS: carvediloL 6.25 MG TABLET PO SCH (08:54)
[2019-04-27] MEDS: FLUoxetine 20 MG CAPSULE PO SCH (08:54)
[2019-04-27] MEDS: Insulin LISPRO 300 UNITS/3 ML VIAL SQ SCH (08:55)
[2019-04-27] MEDS ORDERED: Isosorbide MONOnitrate (24 HR) 60 MG TAB.ER.24H PO SCH (09:00)
== END 2019-04-27 12:10 | disposition home or self-care (01) | DRG 312 ==
LOC: EMEROOARM 18:44 → 3BNU 18:44
PROVIDERS: ADMIT Student in an Organized Health Care Education/Training Program; ATTEND Student in an Organized Health Care Education/Training Program

== ENCOUNTER 2019-05-30 06:07 | Inpatient (IN) ==
[2019-05-30] MEDS ORDERED: *HR* Propofol 200 MG/20 ML VIAL IVP ONE (06:36)
[2019-05-30] MEDS ORDERED: *HR* Midazolam HCl 5 MG/5 ML VIAL IVP ONE (06:36)
[2019-05-30] MEDS ORDERED: *HR* FentaNYL (PF) 1,000 MCG/20 ML VIAL ONE (06:36)
[2019-05-30] MEDS ORDERED: Tranexamic Acid 1,000 MG/10 ML VIAL ONE (06:37)
[2019-05-30] MEDS ORDERED: CeFAZolin Syr 2,000MG/20 ML 2,000 MG/20 ML SYRINGE IVPB ONE ×2 (06:39→07:20)
[2019-05-30] MEDS ORDERED: Dexamethasone 4 MG/ML VIAL ONE (06:41)
[2019-05-30] MEDS ORDERED: *HR* Rocuronium Bromide 50 MG/5 ML VIAL ONE ×3 (06:41→11:14)
[2019-05-30] MEDS ORDERED: *HR* PHENYLEPHRINE 1,000 MCG/10 ML SYRINGE IVP ONE ×3 (06:41→12:50)
[2019-05-30] MEDS ORDERED: *HR* Magnesium Sulfate 1 GM/2 ML VIAL ONE (06:42)
[2019-05-30] MEDS ORDERED: Lidocaine 2% Syringe 100 MG/5 ML ONE (06:42)
[2019-05-30] MEDS ORDERED: Famotidine 20 MG/2 ML VIAL ONE (06:42)
[2019-05-30] MEDS ORDERED: Albuterol 2.5 MG/3 ML NEBULIZER IH ONE (06:42)
[2019-05-30] MEDS ORDERED: Ringers Solution, Lactated 1,000 ML IVC SCH (06:45)
[2019-05-30] MEDS ORDERED: Heparin 15,000 UNIT in 0.9 % Sodium Chloride 500 ML IV ONE (08:15)
[2019-05-30] MEDS ORDERED: Norepinephrine 4 MG in 0.9 % Sodium Chloride 250 ML IVC PRN (08:15)
[2019-05-30] MEDS ORDERED: Dextrose 50 % in Water (Vial) 30 ML, Sodium Bicarbonate 20 MEQ, Potassium Chloride 15 M... TH ONE (08:15)
[2019-05-30] MEDS ORDERED: Insulin Human Regular 100 UNIT in 0.9 % Sodium Chloride 100 ML IV PRN (08:15)
[2019-05-30] MEDS ORDERED: Dextrose 50 % in Water (Vial) 30 ML, Sodium Bicarbonate 20 MEQ, Lidocaine 1% 5 ML, Insu... TH ONE ×3 (08:15)
[2019-05-30] MEDS ORDERED: D5% in Water 250 ML IV BAG IV ONE (08:24)
[2019-05-30] MEDS ORDERED: Vancomycin 1,000 MG VIAL ONE (08:24)
[2019-05-30] MEDS ORDERED: *HR* Phenylephrine 10 MG/ML VIAL IVC ONE (08:24)
[2019-05-30] MEDS ORDERED: *HR* Magnesium Sulfate 2 GM/50 ML PIGGYBACK IVPB ONE (08:24)
[2019-05-30] MEDS ORDERED: Heparin 1,000 UNITS/500 mL IV.SOLN IVC ONE (08:24)
[2019-05-30] MEDS ORDERED: Mannitol 25% vial 12.5 GM/50 ML VIAL IVP ONE (08:24)
[2019-05-30] MEDS ORDERED: Lidocaine 2% Syringe 100 MG/5 ML IV ONE (08:24)
[2019-05-30] MEDS ORDERED: Albumin Human 25% 25 GM/100 ML IV.SOLN IV ONE (08:24)
[2019-05-30] MEDS ORDERED: Tranexamic Acid 1,000 MG/10 ML VIAL IVP ONE (08:24)
[2019-05-30] MEDS ORDERED: *HR* Heparin 10,000 UNIT/10 ML VIAL IV ONE (08:24)
[2019-05-30 08:45] LABS: ABG Base Excess 0 mEq/L (-2 to 3); ABG Chloride 105 mEq/L (98-107); ABG Glucose 110 mg/dL (60-95); ABG HCO3 27 mEq/L (21-27); ABG Ionized Calcium 1.28 mmol/L (1.15-1.35); ABG Oxygen Saturation 99 % (95-98); ABG PCO2 54 mmHg (35-45); ABG PH 7.31 pH Units (7.32-7.45); ABG PO2 172 mmHg (85-104); ABG TCO2 29 mEq/L (20-26)
[2019-05-30] MEDS ORDERED: Chlorhexidine Rinse 15 ML MOUTHWASH MM SCH (09:00)
[2019-05-30 09:59] LABS: ABG Base Excess 0 mEq/L (-2 to 3); ABG Chloride 107 mEq/L (98-107); ABG Glucose 115 mg/dL (60-95); ABG HCO3 26 mEq/L (21-27); ABG Ionized Calcium 1.15 mmol/L (1.15-1.35); ABG Oxygen Saturation 100 % (95-98); ABG PCO2 49 mmHg (35-45); ABG PH 7.33 pH Units (7.32-7.45); ABG PO2 176 mmHg (85-104); ABG TCO2 27 mEq/L (20-26)
[2019-05-30] MEDS ORDERED: Calcium Gluconate 1,000 MG/10 ML VIAL ONE (09:59)
[2019-05-30] MEDS ORDERED: Protamine Sulfate 250 MG/25 ML VIAL IVP ONE (09:59)
[2019-05-30 10:30] LABS: ABG Base Excess 2 mEq/L (-2 to 3); ABG Chloride 102 mEq/L (98-107); ABG Glucose 157 mg/dL (60-95); ABG HCO3 27 mEq/L (21-27); ABG PCO2 44 mmHg (35-45); ABG PH 7.39 pH Units (7.32-7.45); ABG PO2 > 630 mmHg (85-104); ABG TCO2 28 mEq/L (20-26)
[2019-05-30 11:07] LABS: ABG Base Excess 1 mEq/L (-2 to 3); ABG Chloride 104 mEq/L (98-107); ABG Glucose 120 mg/dL (60-95); ABG HCO3 26 mEq/L (21-27); ABG Ionized Calcium 1.18 mmol/L (1.15-1.35); ABG Oxygen Saturation 100 % (95-98); ABG PCO2 42 mmHg (35-45); ABG PO2 595 mmHg (85-104); ABG TCO2 27 mEq/L (20-26)
[2019-05-30 11:32] LABS: ABG Base Excess 1 mEq/L (-2 to 3); ABG Chloride 103 mEq/L (98-107); ABG Glucose 133 mg/dL (60-95); ABG HCO3 27 mEq/L (21-27); ABG Ionized Calcium 1.16 mmol/L (1.15-1.35); ABG Oxygen Saturation 100 % (95-98); ABG PCO2 48 mmHg (35-45); ABG PH 7.36 pH Units (7.32-7.45); ABG PO2 613 mmHg (85-104); ABG TCO2 29 mEq/L (20-26)
[2019-05-30 12:12] LABS: ABG Base Excess 2 mEq/L (-2 to 3); ABG Chloride 102 mEq/L (98-107); ABG Glucose 108 mg/dL (60-95); ABG HCO3 28 mEq/L (21-27); ABG Ionized Calcium 1.12 mmol/L (1.15-1.35); ABG Oxygen Saturation 100 % (95-98); ABG PCO2 48 mmHg (35-45); ABG PH 7.37 pH Units (7.32-7.45); ABG PO2 516 mmHg (85-104); ABG TCO2 29 mEq/L (20-26)
[2019-05-30 12:49] LABS: ABG Base Excess -1 mEq/L (-2 to 3); ABG Chloride 105 mEq/L (98-107); ABG Glucose 89 mg/dL (60-95); ABG HCO3 25 mEq/L (21-27); ABG Ionized Calcium 1.22 mmol/L (1.15-1.35); ABG Oxygen Saturation 96 % (95-98); ABG PCO2 46 mmHg (35-45); ABG PH 7.35 pH Units (7.32-7.45); ABG PO2 91 mmHg (85-104); ABG TCO2 27 mEq/L (20-26)
[2019-05-30] MEDS ORDERED: *HR* Dextrose 50 % in Water (Syg) 50 ML SYRINGE ONE (12:49)
[2019-05-30] MEDS: Albumin Human 5% 12.5 GM/250 ML IV.SOLN IVPB PRN ×2 (13:30→22:48)
[2019-05-30] MEDS ORDERED: Albumin Human 5% 50.0 GM/1,000 ML IV.SOLN ONE (13:36)
[2019-05-30] MEDS ORDERED: Calcium Gluconate 1gm/50mL 1 GM/50 ML BAG IVPB PRN (13:43)
[2019-05-30] MEDS ORDERED: Ondansetron 4 MG/2 ML VIAL IVP PRN (13:43)
[2019-05-30] MEDS ORDERED: *HR* Dextrose 50 % in Water (Syg) 50 ML SYRINGE IVP PRN (13:43)
[2019-05-30] MEDS ORDERED: Acetaminophen 325 MG TABLET PO PRN (13:43)
[2019-05-30] MEDS ORDERED: Insulin Regular, Human 100 UNIT/ML IV PRN (13:43)
[2019-05-30] MEDS ORDERED: Acetaminophen 650 MG RECTAL SUPP RC PRN (13:43)
[2019-05-30] MEDS ORDERED: Naloxone 0.4 MG/ML INJ IVP PRN (13:43)
[2019-05-30] MEDS ORDERED: Potassium Chloride 40 MEQ/200 ML BAG IVPB PRN (13:43)
[2019-05-30] MEDS ORDERED: Norepinephrine 4 MG in 0.9 % Sodium Chloride 250 ML IVC SCH (13:45)
[2019-05-30] MEDS ORDERED: niCARdipine 20 MG in 0.9 % Sodium Chloride 192 ML IVC SCH (13:45)
[2019-05-30] MEDS ORDERED: 0.9 % Sodium Chloride w KCl 20 MEQ/1,000 ML MLS IVC SCH (13:45)
[2019-05-30] MEDS ORDERED: Insulin Human Regular 100 UNIT in 0.9 % Sodium Chloride 100 ML IVC SCH (13:45)
[2019-05-30 14:02] LABS: Hemoglobin 12.1 g/dL (12.9-16.9)
[2019-05-30 14:04] LABS: Hematocrit 36.5 % (37.5-50.1); Mean Corpuscular HGB Conc 33.2 g/dL (31.6-35.5); Mean Corpuscular Hemoglobin 31.4 pg (28.0-33.3); Mean Corpuscular Volume 94.8 fL (83.0-100.0); Mean Platelet Volume 8.8 fL (9.4-12.4); Platelet Count 130 K/mcL (140-400); Red Blood Count 3.85 M/mcL (4.19-5.50); Red Cell Distribution Width 13.5 % (11.5-14.5)
[2019-05-30 14:16] LABS: BUN/Creatinine Ratio 12 (6-26); Blood Urea Nitrogen 11 mg/dL (6-20); Calcium 7.8 mg/dL (8.6-10.3); Carbon Dioxide 26 mEq/L (23-29); Chloride 108 mEq/L (98-107); Glucose 161 mg/dL (70-105); Magnesium 2.8 mg/dL (1.6-2.6); Osmolality,Calculated 293 (280-300); Potassium 3.9 mEq/L (3.5-5.1); Sodium 140 mEq/L (136-145); eGFR For African Americans > 60 (> 60); eGFR For Non-African Americans > 60 (> 60)
[2019-05-30 14:18] LABS: INR 1.4
[2019-05-30 14:21] LABS: Activated Partial Thrombo Time 27.5 Seconds (26.0-36.0)
[2019-05-30 14:24] LABS: White Blood Count 25.8 K/mcL (4.3-11.1)
[2019-05-30 14:25] LABS: Prothrombin Time 15.4 Seconds (9.4-12.1)
[2019-05-30 14:31] LABS: Lymphocytes # 3.6 K/mcL (0.6-4.6); Monocytes # 1.6 K/mcL (0.0-1.3); Neutrophils # 20.6 K/mcL (1.6-8.9)
[2019-05-30] MEDS: Pantoprazole 40 MG VIAL IVP SCH (15:25)
[2019-05-30] MEDS: *HR* OxyCODONE/APAP 5/325 TABLET PO PRN ×2 (16:15→20:48)
[2019-05-30 17:39] LABS: ABG Base Excess 1 mEq/L (-2 to 3); ABG HCO3 26 mEq/L (21-27); ABG Oxygen Saturation 94 % (95-98); ABG PCO2 46 mmHg (35-45); ABG PH 7.37 pH Units (7.32-7.45); ABG PO2 75 mmHg (85-104); ABG TCO2 28 mEq/L (20-26); Blood Gas Modality AF; Blood Gas VT 500 cc
[2019-05-30] MEDS: *HR* FentaNYL (PF) 100 MCG/2 ML VIAL IVP PRN ×2 (18:23→20:48)
[2019-05-30] MEDS: Metoclopramide 10 MG/2 ML VIAL IVP SCH (18:24)
[2019-05-30] MEDS: Ketorolac 15 MG/ML VIAL IVP SCH (18:24)
[2019-05-30 18:56] LABS: Hematocrit 36.1 % (37.5-50.1); Hemoglobin 12.2 g/dL (12.9-16.9)
[2019-05-30] MEDS: Chlorhexidine Rinse 15 ML MOUTHWASH MM SCH (20:48)
[2019-05-30] MEDS: ceFAZolin 2,000 MG in 0.9 % Sodium Chloride 100 ML IVPB SCH (21:18)
[2019-05-31] MEDS: Ketorolac 15 MG/ML VIAL IVP SCH ×5 (00:08→18:15)
[2019-05-31] MEDS: Metoclopramide 10 MG/2 ML VIAL IVP SCH ×5 (00:08→18:15)
[2019-05-31] MEDS: *HR* FentaNYL (PF) 100 MCG/2 ML VIAL IVP PRN ×2 (04:29→08:43)
[2019-05-31] MEDS: *HR* OxyCODONE/APAP 5/325 TABLET PO PRN (04:29)
[2019-05-31 05:02] LABS: Basophils % 0.1 %; Immature Granulocytes % 0.5 % (0-4); Lymphocytes # 1.6 K/mcL (0.6-4.6); Lymphocytes % 9.4 %; Mean Corpuscular HGB Conc 32.1 g/dL (31.6-35.5); Mean Corpuscular Volume 93.5 fL (83.0-100.0); Mean Platelet Volume 8.7 fL (9.4-12.4); Monocytes # 1.6 K/mcL (0.0-1.3); Monocytes % 9.7 %; Neutrophils # 13.6 K/mcL (1.6-8.9); Platelet Count 121 K/mcL (140-400); Red Blood Count 3.53 M/mcL (4.19-5.50); Red Cell Distribution Width 14.3 % (11.5-14.5); Segmented Neutrophils % 80.3 %; White Blood Count 16.9 K/mcL (4.3-11.1)
[2019-05-31 05:05] LABS: Hemoglobin 10.6 g/dL (12.9-16.9)
[2019-05-31 05:09] LABS: INR 1.2; Prothrombin Time 13.3 Seconds (9.4-12.1)
[2019-05-31 05:25] LABS: BUN/Creatinine Ratio 17 (6-26); Blood Urea Nitrogen 16 mg/dL (6-20); Calcium 8.5 mg/dL (8.6-10.3); Carbon Dioxide 24 mEq/L (23-29); Chloride 110 mEq/L (98-107); Glucose 140 mg/dL (70-105); Magnesium 2.2 mg/dL (1.6-2.6); Osmolality,Calculated 293 (280-300); Potassium 4.5 mEq/L (3.5-5.1); Sodium 140 mEq/L (136-145); eGFR For African Americans > 60 (> 60); eGFR For Non-African Americans > 60 (> 60)
[2019-05-31] MEDS: ceFAZolin 2,000 MG in 0.9 % Sodium Chloride 100 ML IVPB SCH (05:36)
[2019-05-31] MEDS: Pantoprazole 40 MG VIAL IVP SCH (08:43)
[2019-05-31] MEDS: Chlorhexidine Rinse 15 ML MOUTHWASH MM SCH ×2 (08:43→20:45)
[2019-05-31] MEDS ORDERED: Aspirin Enteric Coated 81 MG Tablet PO SCH (09:00)
[2019-05-31] MEDS ORDERED: Furosemide 20 MG/2 ML VIAL IVP SCH (09:00)
[2019-05-31] MEDS ORDERED: Insulin Human Regular 100 UNIT in 0.9 % Sodium Chloride 100 ML IVC SCH (11:18)
[2019-05-31] MEDS ORDERED: *HR* FentaNYL (PF) 100 MCG/2 ML VIAL IVP PRN (11:18)
[2019-05-31] MEDS ORDERED: Nitroglycerin 0.4 MG TAB.SUBL SL PRN (11:18)
[2019-05-31] MEDS ORDERED: Naloxone 0.4 MG/ML INJ IVP PRN (11:18)
[2019-05-31] MEDS ORDERED: *HR* Dextrose 50 % in Water (Syg) 50 ML SYRINGE IVP PRN (11:18)
[2019-05-31] MEDS ORDERED: D5% in Water 1,000 ML IVC PRN (11:18)
[2019-05-31] MEDS ORDERED: Dextrose Gel 15 GM/37.5 ML TUBE PO PRN ×2 (11:18)
[2019-05-31] MEDS ORDERED: Ondansetron 4 MG/2 ML VIAL IVP PRN (11:18)
[2019-05-31] MEDS ORDERED: Insulin Regular, Human 100 UNIT/ML IV PRN (11:18)
[2019-05-31] MEDS: carvediloL 6.25 MG TABLET PO SCH ×2 (12:48→18:15)
[2019-05-31] MEDS: *HR* Amiodarone 200 MG TABLET PO SCH (12:49)
[2019-05-31] MEDS: *HR* Metformin 500 MG TABLET PO SCH ×2 (13:20→13:27)
[2019-05-31] MEDS: FLUoxetine 20 MG CAPSULE PO SCH (13:21)
[2019-05-31] MEDS: Cholecalciferol (D-3) 1,000 UNIT (25MCG) TABLET PO SCH (13:21)
[2019-05-31] MEDS: Gabapentin 300 MG CAPSULE PO SCH ×3 (13:21→20:45)
[2019-05-31] MEDS: Insulin LISPRO 300 UNITS/3 ML VIAL SQ SCH ×3 (13:28→20:37)
[2019-05-31] MEDS: *HR* Heparin 5,000 UNIT/ML VIAL SQ SCH ×2 (18:15→19:27)
[2019-05-31] MEDS: Furosemide 20 MG/2 ML VIAL IVP SCH (20:45)
[2019-06-01] MEDS: Metoclopramide 10 MG/2 ML VIAL IVP SCH ×4 (00:02→17:39)
[2019-06-01] MEDS: Ketorolac 15 MG/ML VIAL IVP SCH ×2 (00:03→05:04)
[2019-06-01] MEDS: *HR* OxyCODONE/APAP 5/325 TABLET PO PRN ×4 (00:08→21:50)
[2019-06-01] MEDS: *HR* Heparin 5,000 UNIT/ML VIAL SQ SCH ×2 (05:02→17:39)
[2019-06-01 05:31] LABS: Basophils # 0.1 K/mcL (0.0-0.2); Basophils % 0.5 %; Eosinophils # 0.1 K/mcL (0.0-0.6); Eosinophils % 0.6 %; Hematocrit 29.3 % (37.5-50.1); Hemoglobin 9.6 g/dL (12.9-16.9); Immature Granulocytes % 0.7 % (0-4); Lymphocytes # 3.3 K/mcL (0.6-4.6); Lymphocytes % 26.8 %; Mean Corpuscular HGB Conc 32.8 g/dL (31.6-35.5); Mean Corpuscular Hemoglobin 31.3 pg (28.0-33.3); Mean Corpuscular Volume 95.4 fL (83.0-100.0); Mean Platelet Volume 8.9 fL (9.4-12.4); Monocytes # 1.6 K/mcL (0.0-1.3); Monocytes % 12.6 %; Neutrophils # 7.3 K/mcL (1.6-8.9); Platelet Count 103 K/mcL (140-400); Red Blood Count 3.07 M/mcL (4.19-5.50); Red Cell Distribution Width 14.8 % (11.5-14.5); Segmented Neutrophils % 58.8 %; White Blood Count 12.4 K/mcL (4.3-11.1)
[2019-06-01 05:40] LABS: BUN/Creatinine Ratio 22 (6-26); Blood Urea Nitrogen 23 mg/dL (6-20); Calcium 8.5 mg/dL (8.6-10.3); Carbon Dioxide 28 mEq/L (23-29); Chloride 105 mEq/L (98-107); Glucose 99 mg/dL (70-105); Osmolality,Calculated 294 (280-300); Potassium 4.2 mEq/L (3.5-5.1); Sodium 140 mEq/L (136-145); eGFR For African Americans > 60 (> 60); eGFR For Non-African Americans > 60 (> 60)
[2019-06-01] MEDS: Insulin LISPRO 300 UNITS/3 ML VIAL SQ SCH ×4 (08:04→21:47)
[2019-06-01] MEDS: *HR* Amiodarone 200 MG TABLET PO SCH (08:05)
[2019-06-01] MEDS: Cholecalciferol (D-3) 1,000 UNIT (25MCG) TABLET PO SCH (08:05)
[2019-06-01] MEDS: *HR* Metformin 500 MG TABLET PO SCH (08:05)
[2019-06-01] MEDS: FLUoxetine 20 MG CAPSULE PO SCH (08:05)
[2019-06-01] MEDS: carvediloL 6.25 MG TABLET PO SCH ×2 (08:05→17:38)
[2019-06-01] MEDS: Aspirin Enteric Coated 81 MG Tablet PO SCH (08:05)
[2019-06-01] MEDS: Pantoprazole 40 MG VIAL IVP SCH (08:06)
[2019-06-01] MEDS: Furosemide 20 MG/2 ML VIAL IVP SCH ×2 (08:06→21:47)
[2019-06-01] MEDS: Gabapentin 300 MG CAPSULE PO SCH ×3 (08:06→21:47)
[2019-06-01] MEDS: Chlorhexidine Rinse 15 ML MOUTHWASH MM SCH ×2 (08:06→21:47)
[2019-06-01] MEDS: *HR* Ticagrelor 90 MG TABLET PO SCH ×2 (12:01→21:47)
[2019-06-02] MEDS: Metoclopramide 10 MG/2 ML VIAL IVP SCH ×4 (00:28→18:28)
[2019-06-02] MEDS: *HR* Heparin 5,000 UNIT/ML VIAL SQ SCH ×2 (04:32→18:27)
[2019-06-02] MEDS: *HR* OxyCODONE/APAP 5/325 TABLET PO PRN ×4 (04:32→21:01)
[2019-06-02] MEDS: carvediloL 6.25 MG TABLET PO SCH ×2 (08:42→16:37)
[2019-06-02] MEDS: Aspirin Enteric Coated 81 MG Tablet PO SCH (08:42)
[2019-06-02] MEDS: *HR* Amiodarone 200 MG TABLET PO SCH (08:42)
[2019-06-02] MEDS: Cholecalciferol (D-3) 1,000 UNIT (25MCG) TABLET PO SCH (08:42)
[2019-06-02] MEDS: *HR* Ticagrelor 90 MG TABLET PO SCH ×2 (08:42→21:00)
[2019-06-02] MEDS: FLUoxetine 20 MG CAPSULE PO SCH (08:43)
[2019-06-02] MEDS: Gabapentin 300 MG CAPSULE PO SCH ×3 (08:43→21:00)
[2019-06-02] MEDS: *HR* Metformin 500 MG TABLET PO SCH (08:43)
[2019-06-02] MEDS: Insulin LISPRO 300 UNITS/3 ML VIAL SQ SCH ×4 (08:44→21:07)
[2019-06-02] MEDS: Chlorhexidine Rinse 15 ML MOUTHWASH MM SCH ×2 (08:44→21:00)
[2019-06-02] MEDS: Furosemide 20 MG/2 ML VIAL IVP SCH (08:45)
[2019-06-02] MEDS: Pantoprazole 40 MG VIAL IVP SCH (08:45)
[2019-06-03 01:20] LABS: Basophils # 0.1 K/mcL (0.0-0.2); Basophils % 0.5 %; Eosinophils # 0.3 K/mcL (0.0-0.6); Eosinophils % 2.4 %; Hematocrit 30.2 % (37.5-50.1); Hemoglobin 9.6 g/dL (12.9-16.9); Immature Granulocytes % 1.4 % (0-4); Lymphocytes # 2.6 K/mcL (0.6-4.6); Lymphocytes % 19.7 %; Mean Corpuscular HGB Conc 31.8 g/dL (31.6-35.5); Mean Corpuscular Hemoglobin 29.8 pg (28.0-33.3); Mean Corpuscular Volume 93.8 fL (83.0-100.0); Mean Platelet Volume 9.2 fL (9.4-12.4); Monocytes # 1.5 K/mcL (0.0-1.3); Monocytes % 11.6 %; Neutrophils # 8.5 K/mcL (1.6-8.9); Platelet Count 165 K/mcL (140-400); Red Blood Count 3.22 M/mcL (4.19-5.50); Red Cell Distribution Width 13.9 % (11.5-14.5); Segmented Neutrophils % 64.4 %; White Blood Count 13.2 K/mcL (4.3-11.1)
[2019-06-03 01:41] LABS: BUN/Creatinine Ratio 18 (6-26); Blood Urea Nitrogen 16 mg/dL (6-20); Calcium 8.8 mg/dL (8.6-10.3); Carbon Dioxide 25 mEq/L (23-29); Chloride 104 mEq/L (98-107); Glucose 105 mg/dL (70-105); Osmolality,Calculated 282 (280-300); Potassium 3.9 mEq/L (3.5-5.1); Sodium 135 mEq/L (136-145); eGFR For African Americans > 60 (> 60); eGFR For Non-African Americans > 60 (> 60)
[2019-06-03] MEDS: *HR* OxyCODONE/APAP 5/325 TABLET PO PRN ×3 (03:06→19:43)
[2019-06-03] MEDS: *HR* Heparin 5,000 UNIT/ML VIAL SQ SCH ×2 (05:05→17:18)
[2019-06-03] MEDS: Insulin LISPRO 300 UNITS/3 ML VIAL SQ SCH ×4 (08:46→22:24)
[2019-06-03] MEDS: *HR* Ticagrelor 90 MG TABLET PO SCH ×2 (08:47→22:23)
[2019-06-03] MEDS: carvediloL 6.25 MG TABLET PO SCH ×2 (08:47→17:13)
[2019-06-03] MEDS: Chlorhexidine Rinse 15 ML MOUTHWASH MM SCH ×2 (08:47→22:23)
[2019-06-03] MEDS: Aspirin Enteric Coated 81 MG Tablet PO SCH (08:47)
[2019-06-03] MEDS: Gabapentin 300 MG CAPSULE PO SCH ×3 (08:48→22:23)
[2019-06-03] MEDS: *HR* Amiodarone 200 MG TABLET PO SCH (08:48)
[2019-06-03] MEDS: *HR* Metformin 500 MG TABLET PO SCH (08:48)
[2019-06-03] MEDS: Pantoprazole 40 MG VIAL IVP SCH (08:48)
[2019-06-03] MEDS: Cholecalciferol (D-3) 1,000 UNIT (25MCG) TABLET PO SCH (08:49)
[2019-06-03] MEDS: FLUoxetine 20 MG CAPSULE PO SCH (08:49)
[2019-06-04] MEDS: *HR* OxyCODONE/APAP 5/325 TABLET PO PRN ×6 (01:26→23:57)
[2019-06-04 03:22] LABS: Basophils # 0.1 K/mcL (0.0-0.2); Basophils % 0.9 %; Eosinophils # 0.3 K/mcL (0.0-0.6); Eosinophils % 2.6 %; Hematocrit 28.3 % (37.5-50.1); Hemoglobin 9.4 g/dL (12.9-16.9); Immature Granulocytes % 2.4 % (0-4); Lymphocytes # 2.1 K/mcL (0.6-4.6); Mean Corpuscular HGB Conc 33.2 g/dL (31.6-35.5); Mean Corpuscular Hemoglobin 31.2 pg (28.0-33.3); Mean Platelet Volume 8.9 fL (9.4-12.4); Monocytes # 1.5 K/mcL (0.0-1.3); Monocytes % 12.2 %; Neutrophils # 7.9 K/mcL (1.6-8.9); Platelet Count 220 K/mcL (140-400); Red Blood Count 3.01 M/mcL (4.19-5.50); Red Cell Distribution Width 14.4 % (11.5-14.5); Segmented Neutrophils % 64.9 %; White Blood Count 12.2 K/mcL (4.3-11.1)
[2019-06-04 03:39] LABS: BUN/Creatinine Ratio 20 (6-26); Blood Urea Nitrogen 17 mg/dL (6-20); Calcium 8.9 mg/dL (8.6-10.3); Carbon Dioxide 22 mEq/L (23-29); Chloride 106 mEq/L (98-107); Glucose 97 mg/dL (70-105); Osmolality,Calculated 279 (280-300); Potassium 3.8 mEq/L (3.5-5.1); Sodium 134 mEq/L (136-145); eGFR For African Americans > 60 (> 60); eGFR For Non-African Americans > 60 (> 60)
[2019-06-04] MEDS: *HR* Heparin 5,000 UNIT/ML VIAL SQ SCH ×2 (05:45→17:06)
[2019-06-04] MEDS: Gabapentin 300 MG CAPSULE PO SCH ×3 (07:28→19:50)
[2019-06-04] MEDS: Chlorhexidine Rinse 15 ML MOUTHWASH MM SCH ×2 (07:28→19:50)
[2019-06-04] MEDS: Pantoprazole 40 MG VIAL IVP SCH (07:28)
[2019-06-04] MEDS: Cholecalciferol (D-3) 1,000 UNIT (25MCG) TABLET PO SCH (07:28)
[2019-06-04] MEDS: *HR* Ticagrelor 90 MG TABLET PO SCH ×2 (07:28→19:50)
[2019-06-04] MEDS: Aspirin Enteric Coated 81 MG Tablet PO SCH (07:28)
[2019-06-04] MEDS: FLUoxetine 20 MG CAPSULE PO SCH (07:28)
[2019-06-04] MEDS: *HR* Amiodarone 200 MG TABLET PO SCH (07:29)
[2019-06-04] MEDS: carvediloL 6.25 MG TABLET PO SCH ×2 (07:29→17:06)
[2019-06-04] MEDS: *HR* Metformin 500 MG TABLET PO SCH (07:29)
[2019-06-04] MEDS: Insulin LISPRO 300 UNITS/3 ML VIAL SQ SCH ×4 (08:57→20:26)
[2019-06-04] MEDS ORDERED: Furosemide 40 MG/4 ML VIAL IVP ONE (14:49)
[2019-06-04] MEDS: Piperacillin/Tazobactam 3.375 GM in 0.9 % Sodium Chloride Mini Bag 100 ML IVPB SCH ×2 (14:57→23:46)
[2019-06-04] MEDS: MethylPREDNISolone 40 MG/ML VIAL IVP SCH ×2 (16:14→23:46)
[2019-06-04] MEDS: Doxycycline 100 MG in 0.9 % Sodium Chloride Mini Bag 100 ML IVPB SCH (19:49)
[2019-06-05] MEDS: *HR* Heparin 5,000 UNIT/ML VIAL SQ SCH ×2 (05:22→16:26)
[2019-06-05] MEDS: Doxycycline 100 MG in 0.9 % Sodium Chloride Mini Bag 100 ML IVPB SCH ×2 (05:22→20:38)
[2019-06-05 06:50] LABS: Basophils % 0.3 %; Eosinophils % 0.1 %; Hematocrit 29.7 % (37.5-50.1); Hemoglobin 9.7 g/dL (12.9-16.9); Immature Granulocytes % 2.4 % (0-4); Lymphocytes # 0.9 K/mcL (0.6-4.6); Lymphocytes % 8.7 %; Mean Corpuscular HGB Conc 32.7 g/dL (31.6-35.5); Mean Corpuscular Hemoglobin 30.6 pg (28.0-33.3); Mean Corpuscular Volume 93.7 fL (83.0-100.0); Monocytes # 0.4 K/mcL (0.0-1.3); Monocytes % 4.1 %; Platelet Count 284 K/mcL (140-400); Red Blood Count 3.17 M/mcL (4.19-5.50); Red Cell Distribution Width 14.2 % (11.5-14.5); Segmented Neutrophils % 84.4 %; White Blood Count 10.6 K/mcL (4.3-11.1)
[2019-06-05] MEDS: Pantoprazole 40 MG VIAL IVP SCH (07:07)
[2019-06-05] MEDS: Chlorhexidine Rinse 15 ML MOUTHWASH MM SCH ×2 (07:07→20:39)
[2019-06-05] MEDS: MethylPREDNISolone 40 MG/ML VIAL IVP SCH ×3 (07:07→23:41)
[2019-06-05] MEDS: *HR* Metformin 500 MG TABLET PO SCH (07:08)
[2019-06-05] MEDS: FLUoxetine 20 MG CAPSULE PO SCH (07:08)
[2019-06-05] MEDS: Cholecalciferol (D-3) 1,000 UNIT (25MCG) TABLET PO SCH (07:08)
[2019-06-05] MEDS: Piperacillin/Tazobactam 3.375 GM in 0.9 % Sodium Chloride Mini Bag 100 ML IVPB SCH ×3 (07:08→23:39)
[2019-06-05] MEDS: Aspirin Enteric Coated 81 MG Tablet PO SCH (07:08)
[2019-06-05] MEDS: Gabapentin 300 MG CAPSULE PO SCH ×3 (07:08→20:39)
[2019-06-05] MEDS: *HR* OxyCODONE/APAP 5/325 TABLET PO PRN ×4 (07:09→23:39)
[2019-06-05] MEDS: *HR* Ticagrelor 90 MG TABLET PO SCH ×2 (07:09→20:39)
[2019-06-05] MEDS: carvediloL 6.25 MG TABLET PO SCH ×2 (07:09→16:26)
[2019-06-05] MEDS: *HR* Amiodarone 200 MG TABLET PO SCH (07:09)
[2019-06-05 07:10] LABS: BUN/Creatinine Ratio 29 (6-26); Blood Urea Nitrogen 23 mg/dL (6-20); Calcium 9.2 mg/dL (8.6-10.3); Carbon Dioxide 24 mEq/L (23-29); Chloride 104 mEq/L (98-107); Glucose 177 mg/dL (70-105); Osmolality,Calculated 290 (280-300); Sodium 136 mEq/L (136-145); eGFR For African Americans > 60 (> 60); eGFR For Non-African Americans > 60 (> 60)
[2019-06-05] MEDS: Insulin LISPRO 300 UNITS/3 ML VIAL SQ SCH ×4 (07:16→21:41)
[2019-06-05] MEDS ORDERED: Furosemide 40 MG/4 ML VIAL IVP ONE (12:24)
[2019-06-06] MEDS: Doxycycline 100 MG in 0.9 % Sodium Chloride Mini Bag 100 ML IVPB SCH ×2 (06:08→20:08)
[2019-06-06] MEDS: *HR* Heparin 5,000 UNIT/ML VIAL SQ SCH ×2 (06:09→16:43)
[2019-06-06] MEDS: *HR* OxyCODONE/APAP 5/325 TABLET PO PRN ×3 (06:09→20:08)
[2019-06-06] MEDS: Chlorhexidine Rinse 15 ML MOUTHWASH MM SCH ×2 (07:42→20:11)
[2019-06-06] MEDS: FLUoxetine 20 MG CAPSULE PO SCH (07:42)
[2019-06-06] MEDS: carvediloL 6.25 MG TABLET PO SCH ×2 (07:42→16:43)
[2019-06-06] MEDS: Aspirin Enteric Coated 81 MG Tablet PO SCH (07:42)
[2019-06-06] MEDS: MethylPREDNISolone 40 MG/ML VIAL IVP SCH ×2 (07:42→14:52)
[2019-06-06] MEDS: Pantoprazole 40 MG VIAL IVP SCH (07:42)
[2019-06-06] MEDS: Piperacillin/Tazobactam 3.375 GM in 0.9 % Sodium Chloride Mini Bag 100 ML IVPB SCH ×2 (07:43→14:52)
[2019-06-06] MEDS: Cholecalciferol (D-3) 1,000 UNIT (25MCG) TABLET PO SCH (07:43)
[2019-06-06] MEDS: *HR* Amiodarone 200 MG TABLET PO SCH (07:43)
[2019-06-06] MEDS: *HR* Ticagrelor 90 MG TABLET PO SCH ×2 (07:43→20:09)
[2019-06-06] MEDS: Gabapentin 300 MG CAPSULE PO SCH ×3 (07:43→20:09)
[2019-06-06] MEDS: *HR* Metformin 500 MG TABLET PO SCH (07:43)
[2019-06-06] MEDS: Insulin LISPRO 300 UNITS/3 ML VIAL SQ SCH ×4 (08:36→22:27)
[2019-06-07] MEDS: MethylPREDNISolone 40 MG/ML VIAL IVP SCH ×3 (00:12→16:55)
[2019-06-07] MEDS: Piperacillin/Tazobactam 3.375 GM in 0.9 % Sodium Chloride Mini Bag 100 ML IVPB SCH ×3 (00:13→16:55)
[2019-06-07] MEDS: *HR* OxyCODONE/APAP 5/325 TABLET PO PRN ×3 (00:14→16:55)
[2019-06-07] MEDS: Doxycycline 100 MG in 0.9 % Sodium Chloride Mini Bag 100 ML IVPB SCH ×2 (04:47→16:57)
[2019-06-07] MEDS: *HR* Heparin 5,000 UNIT/ML VIAL SQ SCH ×2 (04:55→16:56)
[2019-06-07] MEDS: Insulin LISPRO 300 UNITS/3 ML VIAL SQ SCH ×4 (08:05→21:14)
[2019-06-07] MEDS: Chlorhexidine Rinse 15 ML MOUTHWASH MM SCH ×2 (08:08→21:14)
[2019-06-07] MEDS: *HR* Metformin 500 MG TABLET PO SCH (08:08)
[2019-06-07] MEDS: carvediloL 6.25 MG TABLET PO SCH ×2 (08:13→16:56)
[2019-06-07] MEDS: Gabapentin 300 MG CAPSULE PO SCH ×3 (08:14→21:14)
[2019-06-07] MEDS: Pantoprazole 40 MG VIAL IVP SCH (08:14)
[2019-06-07] MEDS: FLUoxetine 20 MG CAPSULE PO SCH (08:15)
[2019-06-07] MEDS: *HR* Amiodarone 200 MG TABLET PO SCH (08:15)
[2019-06-07] MEDS: Aspirin Enteric Coated 81 MG Tablet PO SCH (08:15)
[2019-06-07] MEDS: *HR* Ticagrelor 90 MG TABLET PO SCH ×2 (08:15→21:14)
[2019-06-07] MEDS: Cholecalciferol (D-3) 1,000 UNIT (25MCG) TABLET PO SCH (08:16)
[2019-06-07 16:44] LABS: BUN/Creatinine Ratio 32 (6-26); Blood Urea Nitrogen 24 mg/dL (6-20); Calcium 9.4 mg/dL (8.6-10.3); Carbon Dioxide 24 mEq/L (23-29); Chloride 107 mEq/L (98-107); Glucose 110 mg/dL (70-105); Osmolality,Calculated 287 (280-300); Potassium 4.3 mEq/L (3.5-5.1); Sodium 136 mEq/L (136-145); eGFR For African Americans > 60 (> 60); eGFR For Non-African Americans > 60 (> 60)
[2019-06-07] MEDS ORDERED: Furosemide 20 MG/2 ML VIAL IVP ONE (17:10)
[2019-06-08] MEDS: Piperacillin/Tazobactam 3.375 GM in 0.9 % Sodium Chloride Mini Bag 100 ML IVPB SCH (00:09)
[2019-06-08] MEDS: MethylPREDNISolone 40 MG/ML VIAL IVP SCH ×4 (00:09→23:48)
[2019-06-08 04:43] LABS: Hematocrit 31.6 % (37.5-50.1); Hemoglobin 10.1 g/dL (12.9-16.9); Mean Corpuscular Hemoglobin 30.6 pg (28.0-33.3); Mean Corpuscular Volume 95.8 fL (83.0-100.0); Mean Platelet Volume 8.8 fL (9.4-12.4); Nucleated Red Blood Cells 0.1 /100 WBC (0); Platelet Count 465 K/mcL (140-400); Red Cell Distribution Width 15.9 % (11.5-14.5)
[2019-06-08] MEDS: *HR* OxyCODONE/APAP 5/325 TABLET PO PRN ×2 (04:44→23:47)
[2019-06-08 05:08] LABS: BUN/Creatinine Ratio 33 (6-26); Blood Urea Nitrogen 29 mg/dL (6-20); Calcium 9.5 mg/dL (8.6-10.3); Carbon Dioxide 24 mEq/L (23-29); Chloride 103 mEq/L (98-107); Glucose 144 mg/dL (70-105); Osmolality,Calculated 290 (280-300); Potassium 4.2 mEq/L (3.5-5.1); Sodium 136 mEq/L (136-145); eGFR For African Americans > 60 (> 60); eGFR For Non-African Americans > 60 (> 60)
[2019-06-08] MEDS: *HR* Heparin 5,000 UNIT/ML VIAL SQ SCH (05:56)
[2019-06-08] MEDS: Doxycycline 100 MG in 0.9 % Sodium Chloride Mini Bag 100 ML IVPB SCH ×2 (05:56→18:31)
[2019-06-08 05:58] LABS: Lymphocytes # 1.7 K/mcL (0.6-4.6); Monocytes # 1.7 K/mcL (0.0-1.3); Neutrophils # 17.2 K/mcL (1.6-8.9)
[2019-06-08] MEDS ORDERED: Isovue-370 500 ML BOTTLE IVP ONE (07:15)
[2019-06-08] MEDS: Insulin LISPRO 300 UNITS/3 ML VIAL SQ SCH ×4 (08:16→19:47)
[2019-06-08] MEDS ORDERED: Lidocaine -MPF 2% 2 ML VIAL ONE (08:23)
[2019-06-08] MEDS ORDERED: Dexamethasone 4 MG/ML VIAL ONE (08:23)
[2019-06-08] MEDS ORDERED: *HR* Succinylcholine 200 MG/10 ML VIAL IVP ONE (08:23)
[2019-06-08] MEDS ORDERED: *HR* Propofol 200 MG/20 ML VIAL IVP ONE (08:23)
[2019-06-08] MEDS ORDERED: *HR* Rocuronium Bromide 50 MG/5 ML VIAL ONE (08:23)
[2019-06-08] MEDS ORDERED: *HR* FentaNYL (PF) 100 MCG/2 ML VIAL ONE (08:23)
[2019-06-08] MEDS ORDERED: Lidocaine -MPF 4% 5 ML AMPUL ONE (08:23)
[2019-06-08] MEDS ORDERED: Ondansetron 4 MG/2 ML VIAL ONE (08:23)
[2019-06-08] MEDS ORDERED: *HR* Heparin 5,000 UNIT/ML VIAL IVP ONE (08:40)
[2019-06-08] MEDS ORDERED: *HR* Heparin 5,000 UNIT/ML VIAL IVP PRN ×2 (08:40)
[2019-06-08] MEDS ORDERED: Furosemide 20 MG/2 ML VIAL IVP ONE (09:02)
[2019-06-08] MEDS: Aspirin Enteric Coated 81 MG Tablet PO SCH (09:07)
[2019-06-08] MEDS: carvediloL 6.25 MG TABLET PO SCH ×2 (09:07→16:14)
[2019-06-08] MEDS: *HR* Amiodarone 200 MG TABLET PO SCH (09:07)
[2019-06-08] MEDS: FLUoxetine 20 MG CAPSULE PO SCH (09:07)
[2019-06-08] MEDS: Cholecalciferol (D-3) 1,000 UNIT (25MCG) TABLET PO SCH (09:07)
[2019-06-08] MEDS: Gabapentin 300 MG CAPSULE PO SCH ×3 (09:08→19:42)
[2019-06-08] MEDS: Pantoprazole 40 MG VIAL IVP SCH (09:08)
[2019-06-08] MEDS: Chlorhexidine Rinse 15 ML MOUTHWASH MM SCH ×2 (09:08→19:42)
[2019-06-08] MEDS: *HR* Ticagrelor 90 MG TABLET PO SCH ×2 (09:08→19:42)
[2019-06-08 09:37] LABS: Hematocrit 34.1 % (37.5-50.1); Hemoglobin 10.8 g/dL (12.9-16.9); Mean Corpuscular HGB Conc 31.7 g/dL (31.6-35.5); Mean Corpuscular Hemoglobin 30.3 pg (28.0-33.3); Mean Corpuscular Volume 95.8 fL (83.0-100.0); Mean Platelet Volume 8.7 fL (9.4-12.4); Platelet Count 518 K/mcL (140-400); Red Blood Count 3.56 M/mcL (4.19-5.50); Red Cell Distribution Width 15.9 % (11.5-14.5); White Blood Count 23.4 K/mcL (4.3-11.1)
[2019-06-08 09:49] LABS: Heparin anti-factor XA UFH 0.06 IU/mL (0.30-0.70)
[2019-06-08 09:50] LABS: Prothrombin Time 11.7 Seconds (9.4-12.1)
[2019-06-08 09:55] LABS: Serine Protease-3 Antibody 1 AU/mL (0-19)
[2019-06-08] MEDS: Heparin 25,000 UNIT/250 ML D5W 25,000 UNIT/250 ML IV.SOLN IVC SCH (10:25)
[2019-06-08] MEDS: Cefepime HCl 2,000 MG in Water for inj. (sterile) 20 ML IVP SCH ×2 (16:14→23:48)
[2019-06-09 00:58] LABS: Nucleated Red Blood Cells 0.1 /100 WBC (0); Red Cell Distribution Width 15.9 % (11.5-14.5)
[2019-06-09 01:00] LABS: Hematocrit 30.6 % (37.5-50.1); Hemoglobin 10.1 g/dL (12.9-16.9); Lymphocytes # 2.3 K/mcL (0.6-4.6); Mean Corpuscular Hemoglobin 31.8 pg (28.0-33.3); Mean Corpuscular Volume 96.2 fL (83.0-100.0); Mean Platelet Volume 8.8 fL (9.4-12.4); Platelet Count 498 K/mcL (140-400); Red Blood Count 3.18 M/mcL (4.19-5.50); White Blood Count 29.2 K/mcL (4.3-11.1)
[2019-06-09 01:14] LABS: BUN/Creatinine Ratio 39 (6-26); Blood Urea Nitrogen 34 mg/dL (6-20); Calcium 8.9 mg/dL (8.6-10.3); Carbon Dioxide 23 mEq/L (23-29); Chloride 104 mEq/L (98-107); Glucose 181 mg/dL (70-105); Osmolality,Calculated 290 (280-300); Potassium 4.5 mEq/L (3.5-5.1); Sodium 134 mEq/L (136-145); eGFR For African Americans > 60 (> 60); eGFR For Non-African Americans > 60 (> 60)
[2019-06-09 02:08] LABS: Monocytes # 1.2 K/mcL (0.0-1.3); Neutrophils # 25.1 K/mcL (1.6-8.9)
[2019-06-09] MEDS: Doxycycline 100 MG in 0.9 % Sodium Chloride Mini Bag 100 ML IVPB SCH ×2 (05:47→17:34)
[2019-06-09] MEDS: Chlorhexidine Rinse 15 ML MOUTHWASH MM SCH ×2 (07:42→21:16)
[2019-06-09] MEDS: *HR* OxyCODONE/APAP 5/325 TABLET PO PRN ×4 (07:42→23:41)
[2019-06-09] MEDS: Pantoprazole 40 MG VIAL IVP SCH (07:42)
[2019-06-09] MEDS: Gabapentin 300 MG CAPSULE PO SCH ×3 (07:43→21:17)
[2019-06-09] MEDS: FLUoxetine 20 MG CAPSULE PO SCH (07:43)
[2019-06-09] MEDS: Cefepime HCl 2,000 MG in Water for inj. (sterile) 20 ML IVP SCH ×3 (07:43→23:39)
[2019-06-09] MEDS: Cholecalciferol (D-3) 1,000 UNIT (25MCG) TABLET PO SCH (07:43)
[2019-06-09] MEDS: *HR* Amiodarone 200 MG TABLET PO SCH (07:43)
[2019-06-09] MEDS: carvediloL 6.25 MG TABLET PO SCH ×2 (07:43→17:33)
[2019-06-09] MEDS: Aspirin Enteric Coated 81 MG Tablet PO SCH (07:43)
[2019-06-09] MEDS: Insulin LISPRO 300 UNITS/3 ML VIAL SQ SCH ×4 (07:49→21:17)
[2019-06-09 08:51] LABS: Bilirubin,Urine Negative (Negative); Blood,Urine Negative (Negative); Clarity,Urine Clear (Clear); Color,Urine Yellow (Yellow); Glucose,Urine (UA) Normal (Normal); Ketones,Urine Negative (Negative); Leukocyte Esterase,Urine Negative (Negative); Nitrite,Urine Negative (Negative); PH,Urine 6.5 pH Units (5.0-8.0); Protein,Urine Negative (Neg-Trace); Specific Gravity,Urine 1.025 (1.010-1.025); Urobilinogen,Urine Normal (Normal)
[2019-06-09 11:03] LABS: Adenovirus Not Detected (Not Detect); Bordetella Pertussis Not Detected (Not Detect); Chlamydophila pneumoniae Not Detected (Not Detect); Coronavirus 229E Not Detected (Not Detect); Coronavirus HKU1 Not Detected (Not Detect); Coronavirus NL63 Not Detected (Not Detect); Coronavirus OC43 Not Detected (Not Detect); Human Metapneumovirus Not Detected (Not Detect); Human Rhinovirus/Enterovirus Not Detected (Not Detect); Influenza A Subtype 2009 H1 Not Detected (Not Detect); Influenza B Not Detected (Not Detect); Mycoplasma pneumoniae Not Detected (Not Detect); Parainfluenza Virus 1 Not Detected (Not Detect); Parainfluenza Virus 2 Not Detected (Not Detect); Parainfluenza Virus 3 Not Detected (Not Detect); Parainfluenza Virus 4 Not Detected (Not Detect); Respiratory Syncytial Virus Not Detected (Not Detect)
[2019-06-09] MEDS: Heparin 25,000 UNIT/250 ML D5W 25,000 UNIT/250 ML IV.SOLN IVC SCH (11:45)
[2019-06-09] MEDS: Acetaminophen 325 MG TABLET PO PRN (15:44)
[2019-06-09] MEDS: MethylPREDNISolone 40 MG/ML VIAL IVP SCH (17:34)
[2019-06-10 03:20] LABS: Mean Platelet Volume 8.7 fL (9.4-12.4)
[2019-06-10 03:21] LABS: Hemoglobin 11.2 g/dL (12.9-16.9); Platelet Count 545 K/mcL (140-400); Red Blood Count 3.61 M/mcL (4.19-5.50); Red Cell Distribution Width 15.8 % (11.5-14.5); White Blood Count 24.5 K/mcL (4.3-11.1)
[2019-06-10 03:37] LABS: BUN/Creatinine Ratio 40 (6-26); Blood Urea Nitrogen 29 mg/dL (6-20); Calcium 9.2 mg/dL (8.6-10.3); Carbon Dioxide 25 mEq/L (23-29); Chloride 104 mEq/L (98-107); Glucose 132 mg/dL (70-105); Osmolality,Calculated 282 (280-300); Potassium 4.7 mEq/L (3.5-5.1); Sodium 132 mEq/L (136-145); eGFR For African Americans > 60 (> 60); eGFR For Non-African Americans > 60 (> 60)
[2019-06-10 03:38] LABS: Neutrophils # 22.1 K/mcL (1.6-8.9)
[2019-06-10] MEDS: MethylPREDNISolone 40 MG/ML VIAL IVP SCH ×2 (04:58→17:58)
[2019-06-10] MEDS: Doxycycline 100 MG in 0.9 % Sodium Chloride Mini Bag 100 ML IVPB SCH ×2 (04:58→17:59)
[2019-06-10] MEDS ORDERED: Furosemide 20 MG/2 ML VIAL IVP ONE (07:18)
[2019-06-10] MEDS: MOM Conc 10 ML UD.LIQ PO PRN (08:30)
[2019-06-10] MEDS: Chlorhexidine Rinse 15 ML MOUTHWASH MM SCH ×2 (08:30→20:27)
[2019-06-10] MEDS: *HR* OxyCODONE/APAP 5/325 TABLET PO PRN ×2 (08:30→15:31)
[2019-06-10] MEDS: *HR* Amiodarone 200 MG TABLET PO SCH (08:30)
[2019-06-10] MEDS: Cholecalciferol (D-3) 1,000 UNIT (25MCG) TABLET PO SCH (08:31)
[2019-06-10] MEDS: Aspirin Enteric Coated 81 MG Tablet PO SCH (08:31)
[2019-06-10] MEDS: Apixaban 5 MG TABLET PO SCH ×2 (08:31→20:28)
[2019-06-10] MEDS: FLUoxetine 20 MG CAPSULE PO SCH (08:31)
[2019-06-10] MEDS: Gabapentin 300 MG CAPSULE PO SCH ×3 (08:31→20:28)
[2019-06-10] MEDS: carvediloL 6.25 MG TABLET PO SCH ×2 (08:31→15:26)
[2019-06-10] MEDS: Pantoprazole 40 MG VIAL IVP SCH (08:32)
[2019-06-10] MEDS: Cefepime HCl 2,000 MG in Water for inj. (sterile) 20 ML IVP SCH ×2 (08:32→15:26)
[2019-06-10] MEDS: Insulin LISPRO 300 UNITS/3 ML VIAL SQ SCH ×4 (08:34→20:28)
[2019-06-10] MEDS: Furosemide 20 MG/2 ML VIAL IVP SCH ×2 (09:07→20:28)
[2019-06-11] MEDS: Cefepime HCl 2,000 MG in Water for inj. (sterile) 20 ML IVP SCH ×3 (00:18→15:51)
[2019-06-11] MEDS: *HR* OxyCODONE/APAP 5/325 TABLET PO PRN ×5 (00:29→20:13)
[2019-06-11 01:06] LABS: Mean Corpuscular HGB Conc 31.8 g/dL (31.6-35.5); Mean Corpuscular Hemoglobin 30.9 pg (28.0-33.3)
[2019-06-11 01:08] LABS: Hematocrit 38.1 % (37.5-50.1); Hemoglobin 12.1 g/dL (12.9-16.9); Mean Corpuscular Volume 97.2 fL (83.0-100.0); Mean Platelet Volume 8.7 fL (9.4-12.4); Nucleated Red Blood Cells 0.1 /100 WBC (0); Platelet Count 547 K/mcL (140-400); Red Blood Count 3.92 M/mcL (4.19-5.50); Red Cell Distribution Width 15.9 % (11.5-14.5); White Blood Count 26.8 K/mcL (4.3-11.1)
[2019-06-11 01:26] LABS: BUN/Creatinine Ratio 38 (6-26); Blood Urea Nitrogen 35 mg/dL (6-20); Calcium 9.3 mg/dL (8.6-10.3); Carbon Dioxide 27 mEq/L (23-29); Chloride 98 mEq/L (98-107); Glucose 174 mg/dL (70-105); Osmolality,Calculated 284 (280-300); Potassium 4.6 mEq/L (3.5-5.1); Sodium 131 mEq/L (136-145); eGFR For African Americans > 60 (> 60); eGFR For Non-African Americans > 60 (> 60)
[2019-06-11 02:18] LABS: Lymphocytes # 0.5 K/mcL (0.6-4.6); Monocytes # 0.5 K/mcL (0.0-1.3); Neutrophils # 25.7 K/mcL (1.6-8.9)
[2019-06-11] MEDS: MethylPREDNISolone 40 MG/ML VIAL IVP SCH ×2 (06:23→17:19)
[2019-06-11] MEDS: Doxycycline 100 MG in 0.9 % Sodium Chloride Mini Bag 100 ML IVPB SCH ×2 (06:23→17:19)
[2019-06-11] MEDS: Aspirin Enteric Coated 81 MG Tablet PO SCH (07:49)
[2019-06-11] MEDS: FLUoxetine 20 MG CAPSULE PO SCH (07:49)
[2019-06-11] MEDS: Chlorhexidine Rinse 15 ML MOUTHWASH MM SCH ×2 (07:49→20:11)
[2019-06-11] MEDS: *HR* Amiodarone 200 MG TABLET PO SCH (07:50)
[2019-06-11] MEDS: Apixaban 5 MG TABLET PO SCH ×2 (07:50→20:11)
[2019-06-11] MEDS: Furosemide 20 MG/2 ML VIAL IVP SCH ×2 (07:50→20:11)
[2019-06-11] MEDS: Gabapentin 300 MG CAPSULE PO SCH ×3 (07:50→20:11)
[2019-06-11] MEDS: Cholecalciferol (D-3) 1,000 UNIT (25MCG) TABLET PO SCH (07:50)
[2019-06-11] MEDS: carvediloL 6.25 MG TABLET PO SCH ×2 (07:50→17:18)
[2019-06-11] MEDS: MOM Conc 10 ML UD.LIQ PO PRN (07:51)
[2019-06-11] MEDS: Pantoprazole 40 MG VIAL IVP SCH (07:51)
[2019-06-11] MEDS: Insulin LISPRO 300 UNITS/3 ML VIAL SQ SCH ×4 (07:52→19:58)
[2019-06-11] MEDS ORDERED: Aminoglycoside Consult 1 EACH MC ONE (08:28)
[2019-06-11 17:44] LABS: Beef IgE 4.27 kU/L (<=0.34); Feather Mix IgE NEGATIVE kU/L (Negative); Phoma betae IgE <0.10 kU/L (<=0.34)
[2019-06-12] MEDS: Cefepime HCl 2,000 MG in Water for inj. (sterile) 20 ML IVP SCH ×3 (00:07→16:44)
[2019-06-12 02:01] LABS: Basophils # 0.2 K/mcL (0.0-0.2); Basophils % 0.6 %; Hematocrit 37.7 % (37.5-50.1); Hemoglobin 12.3 g/dL (12.9-16.9); Immature Granulocytes % 4.9 % (0-4); Lymphocytes # 1.6 K/mcL (0.6-4.6); Lymphocytes % 6.2 %; Mean Corpuscular HGB Conc 32.6 g/dL (31.6-35.5); Mean Corpuscular Hemoglobin 30.8 pg (28.0-33.3); Mean Corpuscular Volume 94.3 fL (83.0-100.0); Mean Platelet Volume 8.6 fL (9.4-12.4); Monocytes # 1.8 K/mcL (0.0-1.3); Monocytes % 6.8 %; Platelet Count 582 K/mcL (140-400); Red Cell Distribution Width 15.5 % (11.5-14.5); Segmented Neutrophils % 81.5 %; White Blood Count 25.7 K/mcL (4.3-11.1)
[2019-06-12 03:20] LABS: BUN/Creatinine Ratio 43 (6-26); Blood Urea Nitrogen 37 mg/dL (6-20); Calcium 9.5 mg/dL (8.6-10.3); Carbon Dioxide 27 mEq/L (23-29); Chloride 97 mEq/L (98-107); Glucose 181 mg/dL (70-105); Osmolality,Calculated 285 (280-300); Potassium 4.9 mEq/L (3.5-5.1); Sodium 131 mEq/L (136-145); eGFR For African Americans > 60 (> 60); eGFR For Non-African Americans > 60 (> 60)
[2019-06-12] MEDS: Doxycycline 100 MG in 0.9 % Sodium Chloride Mini Bag 100 ML IVPB SCH (05:36)
[2019-06-12] MEDS: MethylPREDNISolone 40 MG/ML VIAL IVP SCH ×2 (05:36→17:49)
[2019-06-12 07:35] LABS: T. vulgaris 1 Ab Precipitin NONE DETECTED (None Detected)
[2019-06-12] MEDS: Cholecalciferol (D-3) 1,000 UNIT (25MCG) TABLET PO SCH (07:59)
[2019-06-12] MEDS: FLUoxetine 20 MG CAPSULE PO SCH (07:59)
[2019-06-12] MEDS: Gabapentin 300 MG CAPSULE PO SCH ×3 (07:59→20:32)
[2019-06-12] MEDS: Apixaban 5 MG TABLET PO SCH ×2 (07:59→20:32)
[2019-06-12] MEDS: Aspirin Enteric Coated 81 MG Tablet PO SCH (07:59)
[2019-06-12] MEDS: *HR* Amiodarone 200 MG TABLET PO SCH (07:59)
[2019-06-12] MEDS: *HR* OxyCODONE/APAP 5/325 TABLET PO PRN ×3 (07:59→17:49)
[2019-06-12] MEDS: carvediloL 6.25 MG TABLET PO SCH ×2 (08:00→17:50)
[2019-06-12] MEDS: Chlorhexidine Rinse 15 ML MOUTHWASH MM SCH ×2 (08:00→20:32)
[2019-06-12] MEDS: Insulin LISPRO 300 UNITS/3 ML VIAL SQ SCH ×4 (08:02→20:28)
[2019-06-12] MEDS: Furosemide 20 MG/2 ML VIAL IVP SCH ×2 (09:41→20:33)
[2019-06-12] MEDS: Acetaminophen 325 MG TABLET PO PRN (09:54)
[2019-06-12] MEDS ORDERED: *HR* OxyCODONE/APAP 5/325 TABLET PO ONE (18:54)
[2019-06-12] MEDS: cephALEXin 500 MG CAPSULE PO SCH (19:10)
[2019-06-13] MEDS: cephALEXin 500 MG CAPSULE PO SCH ×4 (00:34→21:18)
[2019-06-13] MEDS: *HR* OxyCODONE/APAP 10/325 TABLET PO PRN ×3 (04:33→21:18)
[2019-06-13 04:36] LABS: Basophils # 0.1 K/mcL (0.0-0.2); Basophils % 0.5 %; Eosinophils % 0.1 %; Hematocrit 37.3 % (37.5-50.1); Hemoglobin 12.2 g/dL (12.9-16.9); Immature Granulocytes % 4.7 % (0-4); Lymphocytes # 2.2 K/mcL (0.6-4.6); Lymphocytes % 9.5 %; Mean Corpuscular HGB Conc 32.7 g/dL (31.6-35.5); Mean Corpuscular Hemoglobin 31.2 pg (28.0-33.3); Mean Corpuscular Volume 95.4 fL (83.0-100.0); Mean Platelet Volume 8.7 fL (9.4-12.4); Monocytes % 8.6 %; Neutrophils # 17.9 K/mcL (1.6-8.9); Platelet Count 565 K/mcL (140-400); Red Blood Count 3.91 M/mcL (4.19-5.50); Red Cell Distribution Width 15.4 % (11.5-14.5); Segmented Neutrophils % 76.6 %; White Blood Count 23.4 K/mcL (4.3-11.1)
[2019-06-13 04:53] LABS: BUN/Creatinine Ratio 51 (6-26); Blood Urea Nitrogen 39 mg/dL (6-20); Calcium 9.3 mg/dL (8.6-10.3); Carbon Dioxide 30 mEq/L (23-29); Chloride 98 mEq/L (98-107); Glucose 127 mg/dL (70-105); Osmolality,Calculated 287 (280-300); Potassium 4.5 mEq/L (3.5-5.1); Sodium 133 mEq/L (136-145); eGFR For African Americans > 60 (> 60); eGFR For Non-African Americans > 60 (> 60)
[2019-06-13] MEDS: MethylPREDNISolone 40 MG/ML VIAL IVP SCH ×2 (06:27→15:45)
[2019-06-13] MEDS: Insulin LISPRO 300 UNITS/3 ML VIAL SQ SCH ×4 (07:22→21:19)
[2019-06-13] MEDS: Aspirin Enteric Coated 81 MG Tablet PO SCH (07:28)
[2019-06-13] MEDS: Cholecalciferol (D-3) 1,000 UNIT (25MCG) TABLET PO SCH (07:28)
[2019-06-13] MEDS: Chlorhexidine Rinse 15 ML MOUTHWASH MM SCH ×2 (07:28→21:18)
[2019-06-13] MEDS: Apixaban 5 MG TABLET PO SCH ×2 (07:28→21:18)
[2019-06-13] MEDS: *HR* Amiodarone 200 MG TABLET PO SCH (07:28)
[2019-06-13] MEDS: FLUoxetine 20 MG CAPSULE PO SCH (07:28)
[2019-06-13] MEDS: carvediloL 6.25 MG TABLET PO SCH ×2 (07:28→15:45)
[2019-06-13] MEDS: Furosemide 20 MG/2 ML VIAL IVP SCH (07:28)
[2019-06-13] MEDS: Gabapentin 300 MG CAPSULE PO SCH ×3 (07:28→21:18)
[2019-06-14] MEDS: *HR* OxyCODONE/APAP 10/325 TABLET PO PRN ×3 (01:30→20:21)
[2019-06-14] MEDS: cephALEXin 500 MG CAPSULE PO SCH ×4 (01:30→20:22)
[2019-06-14] MEDS: MethylPREDNISolone 40 MG/ML VIAL IVP SCH ×2 (05:06→16:35)
[2019-06-14 06:20] LABS: Basophils # 0.1 K/mcL (0.0-0.2); Basophils % 0.5 %; Eosinophils % 0.2 %; Hematocrit 35.2 % (37.5-50.1); Hemoglobin 11.3 g/dL (12.9-16.9); Immature Granulocytes % 4.4 % (0-4); Lymphocytes # 2.7 K/mcL (0.6-4.6); Mean Corpuscular HGB Conc 32.1 g/dL (31.6-35.5); Mean Corpuscular Hemoglobin 30.8 pg (28.0-33.3); Mean Corpuscular Volume 95.9 fL (83.0-100.0); Mean Platelet Volume 8.9 fL (9.4-12.4); Monocytes % 9.6 %; Neutrophils # 14.9 K/mcL (1.6-8.9); Platelet Count 507 K/mcL (140-400); Red Blood Count 3.67 M/mcL (4.19-5.50); Red Cell Distribution Width 15.7 % (11.5-14.5); Segmented Neutrophils % 72.3 %; White Blood Count 20.6 K/mcL (4.3-11.1)
[2019-06-14 06:33] LABS: BUN/Creatinine Ratio 50 (6-26); Blood Urea Nitrogen 36 mg/dL (6-20); Calcium 8.9 mg/dL (8.6-10.3); Carbon Dioxide 27 mEq/L (23-29); Chloride 100 mEq/L (98-107); Glucose 118 mg/dL (70-105); Osmolality,Calculated 285 (280-300); Potassium 4.4 mEq/L (3.5-5.1); Sodium 133 mEq/L (136-145); eGFR For African Americans > 60 (> 60); eGFR For Non-African Americans > 60 (> 60)
[2019-06-14] MEDS: Furosemide 20 MG/2 ML VIAL IVP SCH (08:00)
[2019-06-14] MEDS: Gabapentin 300 MG CAPSULE PO SCH ×3 (08:01→20:21)
[2019-06-14] MEDS: FLUoxetine 20 MG CAPSULE PO SCH (08:02)
[2019-06-14] MEDS: Chlorhexidine Rinse 15 ML MOUTHWASH MM SCH ×2 (08:02→20:21)
[2019-06-14] MEDS: Aspirin Enteric Coated 81 MG Tablet PO SCH (08:02)
[2019-06-14] MEDS: *HR* Amiodarone 200 MG TABLET PO SCH (08:02)
[2019-06-14] MEDS: Insulin LISPRO 300 UNITS/3 ML VIAL SQ SCH ×4 (08:02→20:26)
[2019-06-14] MEDS: Cholecalciferol (D-3) 1,000 UNIT (25MCG) TABLET PO SCH (08:02)
[2019-06-14] MEDS: carvediloL 6.25 MG TABLET PO SCH ×2 (08:02→16:35)
[2019-06-14] MEDS: Apixaban 5 MG TABLET PO SCH ×2 (08:02→20:22)
[2019-06-15] MEDS: cephALEXin 500 MG CAPSULE PO SCH ×4 (02:32→20:07)
[2019-06-15] MEDS: MethylPREDNISolone 40 MG/ML VIAL IVP SCH ×2 (05:02→17:00)
[2019-06-15] MEDS: *HR* Amiodarone 200 MG TABLET PO SCH (07:47)
[2019-06-15] MEDS: Apixaban 5 MG TABLET PO SCH ×2 (07:47→20:07)
[2019-06-15] MEDS: Chlorhexidine Rinse 15 ML MOUTHWASH MM SCH ×2 (07:47→20:07)
[2019-06-15] MEDS: carvediloL 6.25 MG TABLET PO SCH ×2 (07:47→17:00)
[2019-06-15] MEDS: Cholecalciferol (D-3) 1,000 UNIT (25MCG) TABLET PO SCH (07:48)
[2019-06-15] MEDS: Aspirin Enteric Coated 81 MG Tablet PO SCH (07:48)
[2019-06-15] MEDS: Insulin LISPRO 300 UNITS/3 ML VIAL SQ SCH ×4 (07:48→22:10)
[2019-06-15] MEDS: Gabapentin 300 MG CAPSULE PO SCH ×3 (07:48→20:07)
[2019-06-15] MEDS: Furosemide 20 MG/2 ML VIAL IVP SCH (07:48)
[2019-06-15] MEDS: FLUoxetine 20 MG CAPSULE PO SCH (07:48)
[2019-06-15] MEDS: *HR* OxyCODONE/APAP 10/325 TABLET PO PRN ×2 (14:56→22:06)
[2019-06-15] MEDS: Fluticasone Propionate Nasal 50 MCG/SPRAY BOTTLE NS SCH (17:11)
[2019-06-16] MEDS: cephALEXin 500 MG CAPSULE PO SCH ×4 (01:08→19:35)
[2019-06-16] MEDS: MethylPREDNISolone 40 MG/ML VIAL IVP SCH ×2 (05:05→17:46)
[2019-06-16] MEDS: Gabapentin 300 MG CAPSULE PO SCH ×3 (07:52→19:35)
[2019-06-16] MEDS: Cholecalciferol (D-3) 1,000 UNIT (25MCG) TABLET PO SCH (07:52)
[2019-06-16] MEDS: Aspirin Enteric Coated 81 MG Tablet PO SCH (07:53)
[2019-06-16] MEDS: Chlorhexidine Rinse 15 ML MOUTHWASH MM SCH ×2 (07:53→19:35)
[2019-06-16] MEDS: *HR* Amiodarone 200 MG TABLET PO SCH (07:53)
[2019-06-16] MEDS: FLUoxetine 20 MG CAPSULE PO SCH (07:53)
[2019-06-16] MEDS: Apixaban 5 MG TABLET PO SCH ×2 (07:53→19:35)
[2019-06-16] MEDS: Fluticasone Propionate Nasal 50 MCG/SPRAY BOTTLE NS SCH (07:53)
[2019-06-16] MEDS: carvediloL 6.25 MG TABLET PO SCH ×2 (07:53→16:07)
[2019-06-16] MEDS: Furosemide 20 MG/2 ML VIAL IVP SCH (07:54)
[2019-06-16] MEDS: Insulin LISPRO 300 UNITS/3 ML VIAL SQ SCH ×4 (08:00→20:34)
[2019-06-16] MEDS: *HR* OxyCODONE/APAP 10/325 TABLET PO PRN (16:07)
[2019-06-17] MEDS: cephALEXin 500 MG CAPSULE PO SCH ×4 (00:38→19:52)
[2019-06-17] MEDS: *HR* OxyCODONE/APAP 10/325 TABLET PO PRN ×2 (04:30→16:14)
[2019-06-17] MEDS: MethylPREDNISolone 40 MG/ML VIAL IVP SCH ×2 (06:21→16:06)
[2019-06-17] MEDS: Gabapentin 300 MG CAPSULE PO SCH ×3 (07:59→19:52)
[2019-06-17] MEDS: Cholecalciferol (D-3) 1,000 UNIT (25MCG) TABLET PO SCH (07:59)
[2019-06-17] MEDS: Apixaban 5 MG TABLET PO SCH ×2 (07:59→19:52)
[2019-06-17] MEDS: Furosemide 20 MG/2 ML VIAL IVP SCH (07:59)
[2019-06-17] MEDS: *HR* Amiodarone 200 MG TABLET PO SCH (07:59)
[2019-06-17] MEDS: Chlorhexidine Rinse 15 ML MOUTHWASH MM SCH ×2 (07:59→19:52)
[2019-06-17] MEDS: carvediloL 6.25 MG TABLET PO SCH ×2 (07:59→16:07)
[2019-06-17] MEDS: Aspirin Enteric Coated 81 MG Tablet PO SCH (08:00)
[2019-06-17] MEDS: Fluticasone Propionate Nasal 50 MCG/SPRAY BOTTLE NS SCH (08:01)
[2019-06-17] MEDS: Insulin LISPRO 300 UNITS/3 ML VIAL SQ SCH ×4 (08:11→19:47)
[2019-06-17] MEDS: FLUoxetine 20 MG CAPSULE PO SCH (13:08)
[2019-06-18] MEDS: cephALEXin 500 MG CAPSULE PO SCH ×4 (00:19→20:24)
[2019-06-18] MEDS: MethylPREDNISolone 40 MG/ML VIAL IVP SCH ×2 (06:11→17:27)
[2019-06-18 06:50] LABS: Basophils % 0.2 %; Eosinophils % 0.2 %; Hematocrit 36.7 % (37.5-50.1); Hemoglobin 11.8 g/dL (12.9-16.9); Immature Granulocytes % 2.4 % (0-4); Lymphocytes # 2.7 K/mcL (0.6-4.6); Lymphocytes % 15.5 %; Mean Corpuscular HGB Conc 32.2 g/dL (31.6-35.5); Mean Corpuscular Hemoglobin 30.7 pg (28.0-33.3); Mean Corpuscular Volume 95.6 fL (83.0-100.0); Mean Platelet Volume 8.3 fL (9.4-12.4); Monocytes # 1.6 K/mcL (0.0-1.3); Neutrophils # 12.7 K/mcL (1.6-8.9); Platelet Count 357 K/mcL (140-400); Red Blood Count 3.84 M/mcL (4.19-5.50); Red Cell Distribution Width 15.7 % (11.5-14.5); Segmented Neutrophils % 72.7 %; White Blood Count 17.4 K/mcL (4.3-11.1)
[2019-06-18 07:06] LABS: BUN/Creatinine Ratio 41 (6-26); Blood Urea Nitrogen 28 mg/dL (6-20); Calcium 8.9 mg/dL (8.6-10.3); Carbon Dioxide 27 mEq/L (23-29); Chloride 104 mEq/L (98-107); Glucose 106 mg/dL (70-105); Osmolality,Calculated 288 (280-300); Potassium 4.5 mEq/L (3.5-5.1); Sodium 136 mEq/L (136-145); eGFR For African Americans > 60 (> 60); eGFR For Non-African Americans > 60 (> 60)
[2019-06-18] MEDS ORDERED: *HR* OxyCODONE/APAP 10/325 TABLET ONE ×2 (08:53)
[2019-06-18] MEDS ORDERED: cephALEXin 500 MG CAPSULE PO ONE (08:53)
[2019-06-18] MEDS ORDERED: FLUoxetine 20 MG CAPSULE PO ONE (08:53)
[2019-06-18] MEDS ORDERED: carvediloL 6.25 MG TABLET ONE (08:53)
[2019-06-18] MEDS ORDERED: Cholecalciferol (D-3) 1,000 UNIT (25MCG) TABLET PO ONE (08:53)
[2019-06-18] MEDS ORDERED: Apixaban 5 MG TABLET ONE (08:53)
[2019-06-18] MEDS ORDERED: *HR* Amiodarone 200 MG TABLET ONE (08:53)
[2019-06-18] MEDS ORDERED: Aspirin Enteric Coated 81 MG Tablet PO ONE (08:53)
[2019-06-18] MEDS ORDERED: Gabapentin 300 MG CAPSULE ONE (08:53)
[2019-06-18] MEDS ORDERED: Acetaminophen 325 MG TABLET PO ONE (08:53)
[2019-06-18] MEDS ORDERED: Furosemide 20 MG/2 ML VIAL IVP ONE (08:53)
[2019-06-18] MEDS: carvediloL 6.25 MG TABLET PO SCH ×2 (17:18→17:28)
[2019-06-18] MEDS: Insulin LISPRO 300 UNITS/3 ML VIAL SQ SCH ×3 (17:18→17:28)
[2019-06-18] MEDS: Chlorhexidine Rinse 15 ML MOUTHWASH MM SCH ×2 (17:19→20:23)
[2019-06-18] MEDS: Apixaban 5 MG TABLET PO SCH ×2 (17:19→20:24)
[2019-06-18] MEDS: Fluticasone Propionate Nasal 50 MCG/SPRAY BOTTLE NS SCH (17:19)
[2019-06-18] MEDS: Aspirin Enteric Coated 81 MG Tablet PO SCH (17:19)
[2019-06-18] MEDS: *HR* Amiodarone 200 MG TABLET PO SCH (17:19)
[2019-06-18] MEDS: FLUoxetine 20 MG CAPSULE PO SCH (17:20)
[2019-06-18] MEDS: Furosemide 20 MG/2 ML VIAL IVP SCH (17:20)
[2019-06-18] MEDS: Gabapentin 300 MG CAPSULE PO SCH ×3 (17:20→20:23)
[2019-06-18] MEDS: Cholecalciferol (D-3) 1,000 UNIT (25MCG) TABLET PO SCH (17:20)
[2019-06-18] MEDS: *HR* OxyCODONE/APAP 10/325 TABLET PO PRN (17:27)
[2019-06-19] MEDS: Insulin LISPRO 300 UNITS/3 ML VIAL SQ SCH ×5 (00:44→21:09)
[2019-06-19] MEDS: cephALEXin 500 MG CAPSULE PO SCH ×2 (00:46→08:56)
[2019-06-19] MEDS: *HR* OxyCODONE/APAP 10/325 TABLET PO PRN ×3 (00:50→20:41)
[2019-06-19 02:27] LABS: Basophils # 0.1 K/mcL (0.0-0.2); Basophils % 0.3 %; Eosinophils % 0.1 %; Hematocrit 36.3 % (37.5-50.1); Hemoglobin 12.3 g/dL (12.9-16.9); Immature Granulocytes % 2.4 % (0-4); Lymphocytes # 1.2 K/mcL (0.6-4.6); Lymphocytes % 6.5 %; Mean Corpuscular HGB Conc 33.9 g/dL (31.6-35.5); Mean Corpuscular Hemoglobin 32.5 pg (28.0-33.3); Mean Platelet Volume 8.6 fL (9.4-12.4); Monocytes # 1.4 K/mcL (0.0-1.3); Monocytes % 7.8 %; Neutrophils # 14.8 K/mcL (1.6-8.9); Platelet Count 339 K/mcL (140-400); Red Blood Count 3.78 M/mcL (4.19-5.50); Red Cell Distribution Width 15.5 % (11.5-14.5); Segmented Neutrophils % 82.9 %; White Blood Count 17.8 K/mcL (4.3-11.1)
[2019-06-19 02:50] LABS: BUN/Creatinine Ratio 41 (6-26); Blood Urea Nitrogen 31 mg/dL (6-20); Calcium 8.6 mg/dL (8.6-10.3); Carbon Dioxide 26 mEq/L (23-29); Chloride 100 mEq/L (98-107); Glucose 150 mg/dL (70-105); Osmolality,Calculated 285 (280-300); Potassium 4.6 mEq/L (3.5-5.1); Sodium 133 mEq/L (136-145); eGFR For African Americans > 60 (> 60); eGFR For Non-African Americans > 60 (> 60)
[2019-06-19] MEDS: Acetaminophen 325 MG TABLET PO PRN (05:01)
[2019-06-19] MEDS: MethylPREDNISolone 40 MG/ML VIAL IVP SCH ×2 (05:01→16:20)
[2019-06-19] MEDS: Furosemide 20 MG/2 ML VIAL IVP SCH (08:55)
[2019-06-19] MEDS: *HR* Amiodarone 200 MG TABLET PO SCH (08:55)
[2019-06-19] MEDS: Aspirin Enteric Coated 81 MG Tablet PO SCH (08:55)
[2019-06-19] MEDS: FLUoxetine 20 MG CAPSULE PO SCH (08:55)
[2019-06-19] MEDS: Cholecalciferol (D-3) 1,000 UNIT (25MCG) TABLET PO SCH (08:56)
[2019-06-19] MEDS: Gabapentin 300 MG CAPSULE PO SCH ×3 (08:56→20:31)
[2019-06-19] MEDS: Chlorhexidine Rinse 15 ML MOUTHWASH MM SCH ×3 (08:56→20:31)
[2019-06-19] MEDS: carvediloL 6.25 MG TABLET PO SCH ×2 (08:56→16:20)
[2019-06-19] MEDS: Fluticasone Propionate Nasal 50 MCG/SPRAY BOTTLE NS SCH (08:57)
[2019-06-19] MEDS: Apixaban 5 MG TABLET PO SCH ×2 (08:58→20:30)
[2019-06-19] MEDS: Sulfamethoxazole/Trimeth DS 1 EACH TABLET PO SCH ×2 (11:39→20:31)
[2019-06-20 05:03] LABS: Hematocrit 40.4 % (37.5-50.1); Hemoglobin 13.1 g/dL (12.9-16.9); Mean Corpuscular HGB Conc 32.4 g/dL (31.6-35.5); Mean Corpuscular Hemoglobin 30.9 pg (28.0-33.3); Mean Corpuscular Volume 95.3 fL (83.0-100.0); Mean Platelet Volume 8.5 fL (9.4-12.4); Platelet Count 306 K/mcL (140-400); Red Blood Count 4.24 M/mcL (4.19-5.50); Red Cell Distribution Width 15.4 % (11.5-14.5); White Blood Count 20.3 K/mcL (4.3-11.1)
[2019-06-20] MEDS: MethylPREDNISolone 40 MG/ML VIAL IVP SCH ×2 (05:32→17:19)
[2019-06-20] MEDS: Gabapentin 300 MG CAPSULE PO SCH ×3 (07:27→20:23)
[2019-06-20] MEDS: Furosemide 20 MG/2 ML VIAL IVP SCH (07:27)
[2019-06-20] MEDS: Chlorhexidine Rinse 15 ML MOUTHWASH MM SCH ×2 (07:27→20:23)
[2019-06-20] MEDS: Cholecalciferol (D-3) 1,000 UNIT (25MCG) TABLET PO SCH (07:28)
[2019-06-20] MEDS: FLUoxetine 20 MG CAPSULE PO SCH (07:28)
[2019-06-20] MEDS: carvediloL 6.25 MG TABLET PO SCH ×2 (07:28→17:19)
[2019-06-20] MEDS: Aspirin Enteric Coated 81 MG Tablet PO SCH (07:28)
[2019-06-20] MEDS: Sulfamethoxazole/Trimeth DS 1 EACH TABLET PO SCH ×2 (07:28→20:23)
[2019-06-20] MEDS: Insulin LISPRO 300 UNITS/3 ML VIAL SQ SCH ×4 (07:29→20:23)
[2019-06-20] MEDS: *HR* Amiodarone 200 MG TABLET PO SCH (07:29)
[2019-06-20] MEDS: Apixaban 5 MG TABLET PO SCH ×2 (07:29→20:23)
[2019-06-20] MEDS: Fluticasone Propionate Nasal 50 MCG/SPRAY BOTTLE NS SCH (07:30)
[2019-06-20] MEDS: *HR* OxyCODONE/APAP 10/325 TABLET PO PRN ×2 (17:25→23:33)
[2019-06-21] MEDS: MethylPREDNISolone 40 MG/ML VIAL IVP SCH ×2 (05:14→16:39)
[2019-06-21] MEDS: *HR* OxyCODONE/APAP 10/325 TABLET PO PRN ×3 (05:18→22:18)
[2019-06-21 05:49] LABS: Hematocrit 39.2 % (37.5-50.1); Hemoglobin 12.6 g/dL (12.9-16.9); Mean Corpuscular HGB Conc 32.1 g/dL (31.6-35.5); Mean Corpuscular Hemoglobin 30.7 pg (28.0-33.3); Mean Corpuscular Volume 95.4 fL (83.0-100.0); Mean Platelet Volume 8.6 fL (9.4-12.4); Platelet Count 291 K/mcL (140-400); Red Blood Count 4.11 M/mcL (4.19-5.50); Red Cell Distribution Width 15.2 % (11.5-14.5); White Blood Count 15.2 K/mcL (4.3-11.1)
[2019-06-21] MEDS: Insulin LISPRO 300 UNITS/3 ML VIAL SQ SCH ×4 (07:28→21:08)
[2019-06-21] MEDS: Sulfamethoxazole/Trimeth DS 1 EACH TABLET PO SCH ×2 (08:03→21:07)
[2019-06-21] MEDS: Chlorhexidine Rinse 15 ML MOUTHWASH MM SCH (08:03)
[2019-06-21] MEDS: Gabapentin 300 MG CAPSULE PO SCH ×3 (08:03→21:07)
[2019-06-21] MEDS: Cholecalciferol (D-3) 1,000 UNIT (25MCG) TABLET PO SCH (08:03)
[2019-06-21] MEDS: carvediloL 6.25 MG TABLET PO SCH ×2 (08:03→16:40)
[2019-06-21] MEDS: Apixaban 5 MG TABLET PO SCH ×2 (08:03→21:07)
[2019-06-21] MEDS: Aspirin Enteric Coated 81 MG Tablet PO SCH (08:03)
[2019-06-21] MEDS: *HR* Amiodarone 200 MG TABLET PO SCH (08:03)
[2019-06-21] MEDS: Furosemide 20 MG/2 ML VIAL IVP SCH (08:03)
[2019-06-21] MEDS: FLUoxetine 20 MG CAPSULE PO SCH (08:03)
[2019-06-21] MEDS: Fluticasone Propionate Nasal 50 MCG/SPRAY BOTTLE NS SCH (08:04)
[2019-06-22] MEDS: MethylPREDNISolone 40 MG/ML VIAL IVP SCH ×2 (05:05→18:04)
[2019-06-22] MEDS: Sulfamethoxazole/Trimeth DS 1 EACH TABLET PO SCH ×2 (08:38→21:26)
[2019-06-22] MEDS: carvediloL 6.25 MG TABLET PO SCH ×2 (08:38→18:04)
[2019-06-22] MEDS: *HR* Amiodarone 200 MG TABLET PO SCH (08:38)
[2019-06-22] MEDS: Gabapentin 300 MG CAPSULE PO SCH ×3 (08:38→21:26)
[2019-06-22] MEDS: FLUoxetine 20 MG CAPSULE PO SCH (08:38)
[2019-06-22] MEDS: Aspirin Enteric Coated 81 MG Tablet PO SCH (08:38)
[2019-06-22] MEDS: Apixaban 5 MG TABLET PO SCH ×2 (08:38→21:26)
[2019-06-22] MEDS: Cholecalciferol (D-3) 1,000 UNIT (25MCG) TABLET PO SCH (08:38)
[2019-06-22] MEDS: Insulin LISPRO 300 UNITS/3 ML VIAL SQ SCH ×4 (08:41→21:20)
[2019-06-22] MEDS: Furosemide 20 MG/2 ML VIAL IVP SCH (08:50)
[2019-06-22] MEDS: Fluticasone Propionate Nasal 50 MCG/SPRAY BOTTLE NS SCH (08:50)
[2019-06-22] MEDS: *HR* OxyCODONE/APAP 10/325 TABLET PO PRN ×2 (11:53→21:27)
[2019-06-23] MEDS: MethylPREDNISolone 40 MG/ML VIAL IVP SCH (05:05)
[2019-06-23] MEDS: Sulfamethoxazole/Trimeth DS 1 EACH TABLET PO SCH (07:48)
[2019-06-23] MEDS: Gabapentin 300 MG CAPSULE PO SCH ×2 (07:48→15:02)
[2019-06-23] MEDS: FLUoxetine 20 MG CAPSULE PO SCH (07:48)
[2019-06-23] MEDS: Cholecalciferol (D-3) 1,000 UNIT (25MCG) TABLET PO SCH (07:48)
[2019-06-23] MEDS: *HR* Amiodarone 200 MG TABLET PO SCH (07:49)
[2019-06-23] MEDS: Apixaban 5 MG TABLET PO SCH (07:49)
[2019-06-23] MEDS: Aspirin Enteric Coated 81 MG Tablet PO SCH (07:49)
[2019-06-23] MEDS: carvediloL 6.25 MG TABLET PO SCH (07:49)
[2019-06-23] MEDS: Fluticasone Propionate Nasal 50 MCG/SPRAY BOTTLE NS SCH (07:49)
[2019-06-23] MEDS: Furosemide 20 MG/2 ML VIAL IVP SCH (07:52)
[2019-06-23] MEDS: Insulin LISPRO 300 UNITS/3 ML VIAL SQ SCH ×2 (08:29→12:25)
[2019-06-23 11:57] VITALS: BP 92/64
[2019-06-23] MEDS: *HR* OxyCODONE/APAP 10/325 TABLET PO PRN (12:40)
== END 2019-06-23 17:29 | disposition home or self-care (01) | DRG 235 ==
LOC: SAMDAY 06:07 → ICNU 13:02 → 2NNU 05-31 19:23
PROVIDERS: ADMIT Thoracic Surgery (Cardiothoracic Vascular Surgery); ATTEND Thoracic Surgery (Cardiothoracic Vascular Surgery)

== ENCOUNTER 2019-07-19 13:28 | Inpatient (IN) ==
[2019-07-19] MEDS ORDERED: Ipratropium/Albuterol Neb 3 ML IH ONE (13:44)
[2019-07-19] MEDS ORDERED: 0.9 % Sodium Chloride 500 ML IVC ONE (13:44)
[2019-07-19] MEDS ORDERED: Aspirin 81 MG TAB.CHEW PO SCH (13:45)
[2019-07-19] MEDS ORDERED: methylPREDNISolone 125 MG/2 ML VIAL IVP ONE (13:45)
[2019-07-19 14:16] LABS: Basophils # 0.1 K/mcL (0.0-0.2); Basophils % 0.5 %; Eosinophils % 0.2 %; Hematocrit 43.9 % (37.5-50.1); Hemoglobin 14.3 g/dL (12.9-16.9); Immature Granulocytes % 2.2 % (0-4); Lymphocytes # 2.1 K/mcL (0.6-4.6); Lymphocytes % 10.1 %; Mean Corpuscular HGB Conc 32.6 g/dL (31.6-35.5); Mean Corpuscular Hemoglobin 30.9 pg (28.0-33.3); Mean Corpuscular Volume 94.8 fL (83.0-100.0); Monocytes # 1.2 K/mcL (0.0-1.3); Monocytes % 5.9 %; Neutrophils # 16.9 K/mcL (1.6-8.9); Platelet Count 230 K/mcL (140-400); Red Blood Count 4.63 M/mcL (4.19-5.50); Segmented Neutrophils % 81.1 %; White Blood Count 20.8 K/mcL (4.3-11.1)
[2019-07-19 14:34] LABS: INR 1.2
[2019-07-19 14:37] LABS: Activated Partial Thrombo Time 25.7 Seconds (26.0-36.0)
[2019-07-19 14:43] LABS: Alanine Aminotransferase 63 Units/L (7-52); Albumin 3.7 g/dL (3.5-5.7); Albumin/Globulin Ratio 1.3 (1.1-2.2); Alkaline Phosphatase 103 Units/L (34-104); Aspartate Amino Transferase 31 Units/L (13-39); BUN/Creatinine Ratio 21 (6-26); Bilirubin,Total 0.7 mg/dL (0.3-1.0); Blood Urea Nitrogen 18 mg/dL (6-20); Calcium 9.6 mg/dL (8.6-10.3); Carbon Dioxide 21 mEq/L (23-29); Chloride 106 mEq/L (98-107); Globulin 2.8 g/dL (2.4-3.5); Glucose 112 mg/dL (70-105); Osmolality,Calculated 287 (280-300); Potassium 4.3 mEq/L (3.5-5.1); Sodium 137 mEq/L (136-145); Total Protein 6.5 g/dL (6.4-8.9); Troponin I 0.04 ng/mL (< 0.04); eGFR For African Americans > 60 (> 60); eGFR For Non-African Americans > 60 (> 60)
[2019-07-19] MEDS ORDERED: Azithromycin 500 MG in 0.9 % Sodium Chloride 250 ML IVPB ONE (15:04)
[2019-07-19] MEDS ORDERED: Naloxone 0.4 MG/ML INJ IVP PRN (15:38)
[2019-07-19] MEDS ORDERED: Ipratropium/Albuterol Neb 3 ML IH PRN (15:45)
[2019-07-19] MEDS: Ipratropium/Albuterol Neb 3 ML IH SCH ×2 (17:05→19:40)
[2019-07-19] MEDS ORDERED: *HR* Dextrose 50 % in Water (Syg) 50 ML SYRINGE IVP PRN (17:27)
[2019-07-19] MEDS ORDERED: D5% in Water 1,000 ML IVC PRN (17:27)
[2019-07-19] MEDS ORDERED: Dextrose Gel 15 GM/37.5 ML TUBE PO PRN ×2 (17:27)
[2019-07-19] MEDS: carvediloL 6.25 MG TABLET PO SCH (17:46)
[2019-07-19] MEDS: MethylPREDNISolone 40 MG/ML VIAL IVP SCH ×2 (17:47→23:39)
[2019-07-19 18:15] LABS: ABG Base Excess -3 mEq/L (-2 to 3); ABG HCO3 21 mEq/L (21-27); ABG Oxygen Saturation 92 % (95-98); ABG PCO2 34 mmHg (35-45); ABG PO2 63 mmHg (85-104); ABG TCO2 22 mEq/L (20-26)
[2019-07-19 19:37] LABS: Estimated Average Glucose 117 mg/dl
[2019-07-19] MEDS: Budesonide/Formoterol 160/4.5 1 PUFF INH IH SCH (19:40)
[2019-07-19] MEDS: Apixaban 5 MG TABLET PO SCH (20:55)
[2019-07-19] MEDS: Gabapentin 300 MG CAPSULE PO SCH (20:55)
[2019-07-19] MEDS: Furosemide 40 MG/4 ML VIAL IVP SCH (20:55)
[2019-07-19] MEDS: Sulfamethoxazole/Trimeth DS 1 EACH TABLET PO SCH (20:55)
[2019-07-20] MEDS: Ipratropium/Albuterol Neb 3 ML IH SCH ×7 (00:12→23:29)
[2019-07-20 05:16] LABS: Basophils # 0.1 K/mcL (0.0-0.2); Basophils % 0.6 %; Hematocrit 44.5 % (37.5-50.1); Hemoglobin 14.4 g/dL (12.9-16.9); Immature Granulocytes % 2.4 % (0-4); Lymphocytes # 1.5 K/mcL (0.6-4.6); Lymphocytes % 11.3 %; Mean Corpuscular HGB Conc 32.4 g/dL (31.6-35.5); Mean Corpuscular Hemoglobin 30.5 pg (28.0-33.3); Mean Corpuscular Volume 94.3 fL (83.0-100.0); Mean Platelet Volume 8.2 fL (9.4-12.4); Monocytes # 0.3 K/mcL (0.0-1.3); Monocytes % 2.2 %; Neutrophils # 11.3 K/mcL (1.6-8.9); Platelet Count 256 K/mcL (140-400); Red Blood Count 4.72 M/mcL (4.19-5.50); Red Cell Distribution Width 13.7 % (11.5-14.5); Segmented Neutrophils % 83.5 %; White Blood Count 13.6 K/mcL (4.3-11.1)
[2019-07-20 05:18] LABS: INR 1.4; Prothrombin Time 15.4 Seconds (9.4-12.1)
[2019-07-20 05:34] LABS: BUN/Creatinine Ratio 26 (6-26); Blood Urea Nitrogen 24 mg/dL (6-20); Carbon Dioxide 23 mEq/L (23-29); Chloride 104 mEq/L (98-107); Glucose 167 mg/dL (70-105); Magnesium 2.2 mg/dL (1.6-2.6); Osmolality,Calculated 294 (280-300); Phosphorous 4.9 mg/dL (2.7-4.5); Potassium 4.3 mEq/L (3.5-5.1); Sodium 138 mEq/L (136-145); eGFR For African Americans > 60 (> 60); eGFR For Non-African Americans > 60 (> 60)
[2019-07-20] MEDS: Insulin LISPRO 300 UNITS/3 ML VIAL SQ SCH ×3 (07:58→17:16)
[2019-07-20] MEDS: Budesonide/Formoterol 160/4.5 1 PUFF INH IH SCH ×2 (08:00→20:38)
[2019-07-20] MEDS: carvediloL 6.25 MG TABLET PO SCH ×2 (08:18→17:17)
[2019-07-20] MEDS: Sulfamethoxazole/Trimeth DS 1 EACH TABLET PO SCH ×2 (08:18→20:25)
[2019-07-20] MEDS: MethylPREDNISolone 40 MG/ML VIAL IVP SCH ×2 (08:18→16:06)
[2019-07-20] MEDS: Gabapentin 300 MG CAPSULE PO SCH ×3 (08:18→20:25)
[2019-07-20] MEDS: Furosemide 40 MG/4 ML VIAL IVP SCH (08:18)
[2019-07-20] MEDS: Apixaban 5 MG TABLET PO SCH ×2 (08:18→20:26)
[2019-07-20] MEDS: Aspirin 81 MG TAB.CHEW PO SCH (08:18)
[2019-07-20] MEDS ORDERED: Saline Nasal Spray 44 ML BOTTLE NS PRN (08:26)
[2019-07-20] MEDS ORDERED: Gabapentin 300 MG CAPSULE PO SCH (15:00)
[2019-07-20] MEDS ORDERED: Azithromycin 500 MG in 0.9 % Sodium Chloride 250 ML IVPB SCH (16:00)
[2019-07-20] MEDS: Azithromycin 250 MG TABLET PO SCH (16:05)
[2019-07-20] MEDS: *HR* OxyCODONE/APAP 10/325 TABLET PO PRN (16:06)
[2019-07-21] MEDS: MethylPREDNISolone 40 MG/ML VIAL IVP SCH ×3 (00:24→16:21)
[2019-07-21 01:42] LABS: Basophils # 0.1 K/mcL (0.0-0.2); Basophils % 0.3 %; Hematocrit 43.9 % (37.5-50.1); Hemoglobin 14.1 g/dL (12.9-16.9); Immature Granulocytes % 1.9 % (0-4); Lymphocytes # 1.6 K/mcL (0.6-4.6); Lymphocytes % 7.2 %; Mean Corpuscular HGB Conc 32.1 g/dL (31.6-35.5); Mean Corpuscular Hemoglobin 29.9 pg (28.0-33.3); Mean Platelet Volume 8.4 fL (9.4-12.4); Monocytes # 1.2 K/mcL (0.0-1.3); Monocytes % 5.5 %; Neutrophils # 18.8 K/mcL (1.6-8.9); Platelet Count 308 K/mcL (140-400); Red Blood Count 4.72 M/mcL (4.19-5.50); Red Cell Distribution Width 13.6 % (11.5-14.5); Segmented Neutrophils % 85.1 %
[2019-07-21 01:54] LABS: BUN/Creatinine Ratio 35 (6-26); Blood Urea Nitrogen 38 mg/dL (6-20); Carbon Dioxide 25 mEq/L (23-29); Chloride 101 mEq/L (98-107); Glucose 171 mg/dL (70-105); Osmolality,Calculated 293 (280-300); Potassium 4.3 mEq/L (3.5-5.1); Sodium 135 mEq/L (136-145); eGFR For African Americans > 60 (> 60); eGFR For Non-African Americans > 60 (> 60)
[2019-07-21 02:07] LABS: White Blood Count 22.1 K/mcL (4.3-11.1)
[2019-07-21] MEDS: Ipratropium/Albuterol Neb 3 ML IH SCH ×6 (04:05→23:26)
[2019-07-21] MEDS: Budesonide/Formoterol 160/4.5 1 PUFF INH IH SCH ×2 (08:01→19:36)
[2019-07-21] MEDS: Insulin LISPRO 300 UNITS/3 ML VIAL SQ SCH ×3 (09:01→16:21)
[2019-07-21] MEDS: Aspirin 81 MG TAB.CHEW PO SCH (09:02)
[2019-07-21] MEDS: carvediloL 6.25 MG TABLET PO SCH ×2 (09:03→16:20)
[2019-07-21] MEDS: Gabapentin 300 MG CAPSULE PO SCH ×3 (09:03→21:09)
[2019-07-21] MEDS: FLUoxetine 20 MG CAPSULE PO SCH (09:04)
[2019-07-21] MEDS: Apixaban 5 MG TABLET PO SCH ×2 (09:04→21:00)
[2019-07-21] MEDS: Sulfamethoxazole/Trimeth DS 1 EACH TABLET PO SCH ×2 (09:06→21:09)
[2019-07-21] MEDS: Furosemide 40 MG/4 ML VIAL IVP SCH (09:06)
[2019-07-21] MEDS: *HR* OxyCODONE/APAP 10/325 TABLET PO PRN ×2 (12:11→22:02)
[2019-07-21] MEDS: Azithromycin 250 MG TABLET PO SCH (14:39)
[2019-07-21] MEDS ORDERED: Furosemide 20 MG/2 ML VIAL IVP ONE (15:00)
[2019-07-22] MEDS: MethylPREDNISolone 40 MG/ML VIAL IVP SCH ×2 (00:07→07:32)
[2019-07-22 04:28] LABS: Basophils % 0.1 %; Hemoglobin 13.7 g/dL (12.9-16.9); Immature Granulocytes % 1.4 % (0-4); Lymphocytes # 1.1 K/mcL (0.6-4.6); Lymphocytes % 5.1 %; Mean Corpuscular HGB Conc 33.4 g/dL (31.6-35.5); Mean Corpuscular Hemoglobin 31.1 pg (28.0-33.3); Mean Corpuscular Volume 93.2 fL (83.0-100.0); Mean Platelet Volume 8.3 fL (9.4-12.4); Monocytes # 0.8 K/mcL (0.0-1.3); Monocytes % 3.8 %; Neutrophils # 19.1 K/mcL (1.6-8.9); Platelet Count 282 K/mcL (140-400); Red Cell Distribution Width 13.5 % (11.5-14.5); Segmented Neutrophils % 89.6 %; White Blood Count 21.3 K/mcL (4.3-11.1)
[2019-07-22] MEDS: Ipratropium/Albuterol Neb 3 ML IH SCH ×6 (04:41→23:22)
[2019-07-22 04:49] LABS: BUN/Creatinine Ratio 43 (6-26); Blood Urea Nitrogen 43 mg/dL (6-20); Calcium 9.7 mg/dL (8.6-10.3); Carbon Dioxide 24 mEq/L (23-29); Chloride 100 mEq/L (98-107); Glucose 201 mg/dL (70-105); Magnesium 2.3 mg/dL (1.6-2.6); Osmolality,Calculated 291 (280-300); Phosphorous 3.9 mg/dL (2.7-4.5); Potassium 4.4 mEq/L (3.5-5.1); Sodium 132 mEq/L (136-145); eGFR For African Americans > 60 (> 60); eGFR For Non-African Americans > 60 (> 60)
[2019-07-22 04:56] LABS: ABG Base Excess 3 mEq/L (-2 to 3); ABG HCO3 27 mEq/L (21-27); ABG Oxygen Saturation 89 % (95-98); ABG PCO2 38 mmHg (35-45); ABG PH 7.45 pH Units (7.32-7.45); ABG PO2 53 mmHg (85-104); ABG TCO2 28 mEq/L (20-26)
[2019-07-22] MEDS: Aspirin 81 MG TAB.CHEW PO SCH (07:31)
[2019-07-22] MEDS: Sulfamethoxazole/Trimeth DS 1 EACH TABLET PO SCH ×2 (07:31→21:48)
[2019-07-22] MEDS: FLUoxetine 20 MG CAPSULE PO SCH (07:31)
[2019-07-22] MEDS: Apixaban 5 MG TABLET PO SCH ×2 (07:31→21:48)
[2019-07-22] MEDS: Gabapentin 300 MG CAPSULE PO SCH ×3 (07:31→21:48)
[2019-07-22] MEDS: carvediloL 6.25 MG TABLET PO SCH ×2 (07:31→16:19)
[2019-07-22] MEDS: Furosemide 40 MG/4 ML VIAL IVP SCH ×2 (07:32→17:25)
[2019-07-22] MEDS: *HR* OxyCODONE/APAP 10/325 TABLET PO PRN (07:38)
[2019-07-22] MEDS: Insulin LISPRO 300 UNITS/3 ML VIAL SQ SCH ×3 (07:41→16:18)
[2019-07-22] MEDS: Budesonide/Formoterol 160/4.5 1 PUFF INH IH SCH ×2 (11:18→22:46)
[2019-07-22] MEDS: Fluticasone Propionate Nasal 50 MCG/SPRAY BOTTLE NS SCH (13:45)
[2019-07-22] MEDS: Azithromycin 250 MG TABLET PO SCH (13:46)
[2019-07-22] MEDS ORDERED: MethylPREDNISolone 40 MG/ML VIAL IVP SCH (18:00)
[2019-07-22] MEDS ORDERED: MethylPREDNISolone 40 MG/ML VIAL IVP ONE (20:00)
[2019-07-23] MEDS: Ipratropium/Albuterol Neb 3 ML IH SCH ×5 (03:34→19:34)
[2019-07-23 05:27] LABS: Basophils % 0.2 %; Hematocrit 43.6 % (37.5-50.1); Hemoglobin 14.1 g/dL (12.9-16.9); Immature Granulocytes % 1.3 % (0-4); Lymphocytes % 5.6 %; Mean Corpuscular HGB Conc 32.3 g/dL (31.6-35.5); Mean Corpuscular Hemoglobin 29.8 pg (28.0-33.3); Mean Corpuscular Volume 92.2 fL (83.0-100.0); Mean Platelet Volume 8.4 fL (9.4-12.4); Monocytes # 1.5 K/mcL (0.0-1.3); Monocytes % 8.1 %; Neutrophils # 15.9 K/mcL (1.6-8.9); Platelet Count 302 K/mcL (140-400); Red Blood Count 4.73 M/mcL (4.19-5.50); Red Cell Distribution Width 13.6 % (11.5-14.5); Segmented Neutrophils % 84.8 %; White Blood Count 18.7 K/mcL (4.3-11.1)
[2019-07-23 05:48] LABS: BUN/Creatinine Ratio 40 (6-26); Blood Urea Nitrogen 38 mg/dL (6-20); Calcium 9.7 mg/dL (8.6-10.3); Carbon Dioxide 26 mEq/L (23-29); Chloride 97 mEq/L (98-107); Glucose 165 mg/dL (70-105); Magnesium 2.4 mg/dL (1.6-2.6); Osmolality,Calculated 289 (280-300); Phosphorous 3.5 mg/dL (2.7-4.5); Potassium 4.2 mEq/L (3.5-5.1); Sodium 133 mEq/L (136-145); eGFR For African Americans > 60 (> 60); eGFR For Non-African Americans > 60 (> 60)
[2019-07-23] MEDS: Budesonide/Formoterol 160/4.5 1 PUFF INH IH SCH ×2 (07:25→19:36)
[2019-07-23] MEDS: MethylPREDNISolone 40 MG/ML VIAL IVP SCH (09:05)
[2019-07-23] MEDS: Gabapentin 300 MG CAPSULE PO SCH ×3 (09:05→20:02)
[2019-07-23] MEDS: Insulin LISPRO 300 UNITS/3 ML VIAL SQ SCH ×3 (09:05→17:13)
[2019-07-23] MEDS: Furosemide 40 MG/4 ML VIAL IVP SCH ×2 (09:05→20:02)
[2019-07-23] MEDS: carvediloL 6.25 MG TABLET PO SCH ×2 (09:06→17:12)
[2019-07-23] MEDS: Fluticasone Propionate Nasal 50 MCG/SPRAY BOTTLE NS SCH (09:06)
[2019-07-23] MEDS: Aspirin 81 MG TAB.CHEW PO SCH (09:06)
[2019-07-23] MEDS: Apixaban 5 MG TABLET PO SCH ×2 (09:06→20:02)
[2019-07-23] MEDS: FLUoxetine 20 MG CAPSULE PO SCH (09:06)
[2019-07-23] MEDS: Sulfamethoxazole/Trimeth DS 1 EACH TABLET PO SCH ×2 (09:06→20:02)
[2019-07-23] MEDS: Azithromycin 250 MG TABLET PO SCH (14:35)
[2019-07-23] MEDS ORDERED: carvediloL 6.25 MG TABLET PO ONE (15:05)
[2019-07-23] MEDS: Ondansetron 4 MG/2 ML VIAL IVP PRN (18:39)
[2019-07-23] MEDS: *HR* LORazepam 2 MG/ML VIAL IVP PRN (21:35)
[2019-07-24] MEDS: Ipratropium/Albuterol Neb 3 ML IH SCH ×7 (00:02→23:18)
[2019-07-24] MEDS: Budesonide/Formoterol 160/4.5 1 PUFF INH IH SCH ×2 (07:27→20:05)
[2019-07-24 07:41] LABS: BUN/Creatinine Ratio 47 (6-26); Blood Urea Nitrogen 42 mg/dL (6-20); Calcium 9.4 mg/dL (8.6-10.3); Carbon Dioxide 29 mEq/L (23-29); Chloride 97 mEq/L (98-107); Glucose 121 mg/dL (70-105); Osmolality,Calculated 288 (280-300); Potassium 4.1 mEq/L (3.5-5.1); Sodium 133 mEq/L (136-145); eGFR For African Americans > 60 (> 60); eGFR For Non-African Americans > 60 (> 60)
[2019-07-24] MEDS: Insulin LISPRO 300 UNITS/3 ML VIAL SQ SCH ×3 (08:16→16:44)
[2019-07-24] MEDS: Furosemide 40 MG/4 ML VIAL IVP SCH (09:09)
[2019-07-24] MEDS: Gabapentin 300 MG CAPSULE PO SCH ×3 (09:09→20:46)
[2019-07-24] MEDS: Aspirin 81 MG TAB.CHEW PO SCH (09:09)
[2019-07-24] MEDS: Sulfamethoxazole/Trimeth DS 1 EACH TABLET PO SCH ×2 (09:09→20:46)
[2019-07-24] MEDS: MethylPREDNISolone 40 MG/ML VIAL IVP SCH (09:09)
[2019-07-24] MEDS: Apixaban 5 MG TABLET PO SCH ×2 (09:10→20:46)
[2019-07-24] MEDS: Fluticasone Propionate Nasal 50 MCG/SPRAY BOTTLE NS SCH (09:10)
[2019-07-24] MEDS: FLUoxetine 20 MG CAPSULE PO SCH (09:10)
[2019-07-24] MEDS: carvediloL 6.25 MG TABLET PO SCH ×2 (09:10→16:44)
[2019-07-24] MEDS: Ondansetron 4 MG/2 ML VIAL IVP PRN ×2 (09:16→16:44)
[2019-07-24] MEDS: Azithromycin 250 MG TABLET PO SCH (16:44)
[2019-07-24] MEDS ORDERED: Mag Hydrox/Al Hydrox/Simeth 30 ML UDC PO STA (18:19)
[2019-07-24] MEDS: Nystatin SUSP 5 ML UD.LIQ BC SCH (20:46)
[2019-07-24] MEDS: *HR* LORazepam 2 MG/ML VIAL IVP PRN (21:45)
[2019-07-25 03:36] LABS: BUN/Creatinine Ratio 44 (6-26); Blood Urea Nitrogen 35 mg/dL (6-20); Calcium 9.1 mg/dL (8.6-10.3); Carbon Dioxide 27 mEq/L (23-29); Chloride 94 mEq/L (98-107); Glucose 137 mg/dL (70-105); Osmolality,Calculated 280 (280-300); Potassium 4.3 mEq/L (3.5-5.1); Sodium 130 mEq/L (136-145); eGFR For African Americans > 60 (> 60); eGFR For Non-African Americans > 60 (> 60)
[2019-07-25] MEDS: Ipratropium/Albuterol Neb 3 ML IH SCH ×6 (04:03→23:17)
[2019-07-25] MEDS: Budesonide/Formoterol 160/4.5 1 PUFF INH IH SCH ×2 (07:31→19:50)
[2019-07-25] MEDS ORDERED: Furosemide 40 MG/4 ML VIAL IVP SCH (09:00)
[2019-07-25] MEDS: Insulin LISPRO 300 UNITS/3 ML VIAL SQ SCH ×3 (09:23→17:21)
[2019-07-25] MEDS: *HR* LORazepam 2 MG/ML VIAL IVP PRN (09:24)
[2019-07-25] MEDS: Gabapentin 300 MG CAPSULE PO SCH ×3 (09:27→20:19)
[2019-07-25] MEDS: Apixaban 5 MG TABLET PO SCH ×2 (09:27→20:19)
[2019-07-25] MEDS: FLUoxetine 20 MG CAPSULE PO SCH (09:28)
[2019-07-25] MEDS: Nystatin SUSP 5 ML UD.LIQ BC SCH ×4 (09:28→20:19)
[2019-07-25] MEDS: Aspirin 81 MG TAB.CHEW PO SCH (09:28)
[2019-07-25] MEDS: Fluticasone Propionate Nasal 50 MCG/SPRAY BOTTLE NS SCH (09:30)
[2019-07-25] MEDS: carvediloL 6.25 MG TABLET PO SCH ×2 (09:35→17:19)
[2019-07-25] MEDS: MethylPREDNISolone 40 MG/ML VIAL IVP SCH (09:35)
[2019-07-25] MEDS: Sulfamethoxazole/Trimeth DS 1 EACH TABLET PO SCH ×2 (09:37→20:19)
[2019-07-25] MEDS: Ondansetron 4 MG/2 ML VIAL IVP PRN (12:39)
[2019-07-25] MEDS: Azithromycin 250 MG TABLET PO SCH (14:50)
[2019-07-25] MEDS: *HR* OxyCODONE/APAP 10/325 TABLET PO PRN (14:57)
[2019-07-26] MEDS: Ipratropium/Albuterol Neb 3 ML IH SCH ×6 (04:07→23:54)
[2019-07-26] MEDS: Budesonide/Formoterol 160/4.5 1 PUFF INH IH SCH ×2 (07:44→20:26)
[2019-07-26] MEDS: Insulin LISPRO 300 UNITS/3 ML VIAL SQ SCH ×3 (08:35→17:51)
[2019-07-26] MEDS: predniSONE 20 MG TABLET PO SCH (09:00)
[2019-07-26] MEDS: carvediloL 6.25 MG TABLET PO SCH ×2 (09:00→17:51)
[2019-07-26] MEDS: Sulfamethoxazole/Trimeth DS 1 EACH TABLET PO SCH ×2 (09:00→20:25)
[2019-07-26] MEDS: Gabapentin 300 MG CAPSULE PO SCH ×3 (09:00→20:25)
[2019-07-26] MEDS: FLUoxetine 20 MG CAPSULE PO SCH (09:00)
[2019-07-26] MEDS: Apixaban 5 MG TABLET PO SCH ×2 (09:00→20:25)
[2019-07-26] MEDS: Aspirin 81 MG TAB.CHEW PO SCH (09:01)
[2019-07-26] MEDS: *HR* LORazepam 2 MG/ML VIAL IVP PRN (09:01)
[2019-07-26] MEDS: Nystatin SUSP 5 ML UD.LIQ BC SCH ×5 (09:01→21:00)
[2019-07-26] MEDS: Fluticasone Propionate Nasal 50 MCG/SPRAY BOTTLE NS SCH (09:02)
[2019-07-26] MEDS ORDERED: Furosemide 20 MG/2 ML VIAL IVP ONE (10:46)
[2019-07-26] MEDS: *HR* OxyCODONE/APAP 10/325 TABLET PO PRN (11:53)
[2019-07-26] MEDS: Azithromycin 250 MG TABLET PO SCH (15:15)
[2019-07-27] MEDS: *HR* OxyCODONE/APAP 10/325 TABLET PO PRN ×3 (00:15→16:59)
[2019-07-27] MEDS: Ipratropium/Albuterol Neb 3 ML IH SCH ×6 (03:43→23:14)
[2019-07-27] MEDS: Insulin LISPRO 300 UNITS/3 ML VIAL SQ SCH ×3 (07:47→16:59)
[2019-07-27] MEDS: predniSONE 20 MG TABLET PO SCH (07:47)
[2019-07-27] MEDS: FLUoxetine 20 MG CAPSULE PO SCH (07:47)
[2019-07-27] MEDS: Nystatin SUSP 5 ML UD.LIQ BC SCH ×4 (07:48→19:54)
[2019-07-27] MEDS: Sulfamethoxazole/Trimeth DS 1 EACH TABLET PO SCH ×2 (07:48→19:54)
[2019-07-27] MEDS: Apixaban 5 MG TABLET PO SCH ×2 (07:48→19:54)
[2019-07-27] MEDS: Gabapentin 300 MG CAPSULE PO SCH ×3 (07:48→19:54)
[2019-07-27] MEDS: Aspirin 81 MG TAB.CHEW PO SCH (07:48)
[2019-07-27] MEDS: carvediloL 6.25 MG TABLET PO SCH ×2 (07:50→16:58)
[2019-07-27] MEDS: Fluticasone Propionate Nasal 50 MCG/SPRAY BOTTLE NS SCH (07:52)
[2019-07-27] MEDS: Budesonide/Formoterol 160/4.5 1 PUFF INH IH SCH ×2 (07:59→20:43)
[2019-07-27] MEDS: *HR* LORazepam 2 MG/ML VIAL IVP PRN ×2 (10:13→22:25)
[2019-07-27] MEDS: Azithromycin 250 MG TABLET PO SCH (14:18)
[2019-07-28] MEDS: Ipratropium/Albuterol Neb 3 ML IH SCH ×3 (03:40→11:12)
[2019-07-28] MEDS: Budesonide/Formoterol 160/4.5 1 PUFF INH IH SCH (08:21)
[2019-07-28] MEDS: Insulin LISPRO 300 UNITS/3 ML VIAL SQ SCH ×2 (08:32→12:02)
[2019-07-28] MEDS: predniSONE 20 MG TABLET PO SCH (08:44)
[2019-07-28] MEDS: Aspirin 81 MG TAB.CHEW PO SCH (08:44)
[2019-07-28] MEDS: Sulfamethoxazole/Trimeth DS 1 EACH TABLET PO SCH (08:44)
[2019-07-28] MEDS: carvediloL 6.25 MG TABLET PO SCH (08:44)
[2019-07-28] MEDS: Apixaban 5 MG TABLET PO SCH (08:44)
[2019-07-28] MEDS: FLUoxetine 20 MG CAPSULE PO SCH (08:45)
[2019-07-28] MEDS: Gabapentin 300 MG CAPSULE PO SCH (08:45)
[2019-07-28] MEDS: Nystatin SUSP 5 ML UD.LIQ BC SCH ×2 (08:45→12:02)
[2019-07-28] MEDS ORDERED: DilTIAZem CD (24hr) 120 MG CAP.ER.24H PO SCH (09:00)
[2019-07-28 11:31] VITALS: BP 104/63
[2019-07-28] MEDS: Fluticasone Propionate Nasal 50 MCG/SPRAY BOTTLE NS SCH (12:02)
[2019-07-28] MEDS ORDERED: Azithromycin 250 MG TABLET PO SCH (15:00)
[2019-07-29] MEDS ORDERED: polyethylene glycoL 3350 17 GM POWD.PACK PO SCH (09:00)
== END 2019-07-28 13:50 | disposition short-term general hospital (02) ==
LOC: EMEROOARM 13:28 → 2ANU 13:28 → 3NENU 16:32 → SUATTDRO 16:33
PROVIDERS: ADMIT Student in an Organized Health Care Education/Training Program; ATTEND Internal Medicine